=== PATIENT | female | born 1950 | race African-American/Black ===

== ENCOUNTER 2019-12-19 11:02 | Emergency (ER) | payer MEDICARE, MEDICAID ==
[~2019-12-19] VITALS: Ht 157.5 cm; Wt 150.0 kg
[~2019-12-19 11:02] MED LIST: AMLO10TA80 PO; ASPI-1497 PO; ATOR-2 PO; BENA40TA9 PO; CARV25TA47 PO; CHOL100044 PO; FUROSEMIDE PO; HUMALOG; HYDR-4134 PO; LANTUS
[2019-12-19 11:39] LABS: BASOPHILS % 1.4 % (0.0-2.0); EOSINOPHILS % 6.1 % (0.0-5.0); HEMATOCRIT. 36.2 % (36.0-48.0); HEMOGLOBIN. 11.7 g/dL (12.0-16.0); LYMPHOCYTES % 21.9 % (20.0-50.0); MEAN CORPUSCULAR HEMOGLOBIN 28.3 pg (28.0-32.0); MEAN CORPUSCULAR VOLUME 87.3 fL (81.0-99.0); MEAN PLATELET VOLUME 8.9 fl (7.4-10.4); MONOCYTES % 5.8 % (2.0-8.0); NEUTROPHILS % 64.8 % (40.0-76.0); PLATELET 166 x1000/uL (130-400); RED BLOOD CELL COUNT 4.15 mill/uL (4.2-5.4); RED CELL DISTRIBUTION WIDTH 17.2 % (11.6-14.6)
[2019-12-19 11:49] LABS: CHLORIDE 112 mEq/L (98-107)
[2019-12-19 11:52] LABS: ETHANOL BLOOD < 10 mg/dL
[2019-12-19 13:06] LABS: CLARITY URINE CLOUDY (CLEAR); COLOR URINE YELLOW (YELLOW); KETONES URINE NEGATIVE (NEGATIVE); LEUKOCYTE ESTERASE URINE 3+ (NEGATIVE); NITRITE URINE NEGATIVE (NEGATIVE); OCCULT BLOOD URINE NEGATIVE (NEGATIVE); PH URINE 5.5 (4.5-8.0); PROTEIN URINE NEGATIVE (NEGATIVE); SPECIFIC GRAVITY URINE 1.014 (1.005-1.030); UROBILINOGEN URINE 0.2 E.U./dL (0.2-1.0)
[2019-12-19 13:56] LABS: *BARBITURATES SCREEN URINE NEGATIVE (NEGATIVE); *BENZODIAZEPINES SCREEN URINE NEGATIVE (NEGATIVE); *COCAINE SCREEN URINE NEGATIVE (NEGATIVE); OPIATES URINE SCREEN NEGATIVE (NEGATIVE)
[2019-12-19 13:57] LABS: *AMPHETAMINES SCREEN URINE NEGATIVE (NEGATIVE); CANNABINOID URINE SCREEN NEGATIVE (NEGATIVE); PHENCYCLIDINE URINE SCREEN NEGATIVE (NEGATIVE)
[2019-12-19 14:00] LABS: METHADONE URINE SCREEN NEGATIVE (NEGATIVE)
[2019-12-19 15:30] VITALS: BP 150/65
== END 2019-12-19 16:19 | disposition home or self-care (01) ==
LOC: ER 11:02
DX: E11.649 Type 2 diabetes mellitus with hypoglycemia without coma (principal); N39.0 Urinary tract infection, site not specified; I11.0 Hypertensive heart disease with heart failure; I50.9 Heart failure, unspecified; Z79.899 Other long term (current) drug therapy; Z98.890 Other specified postprocedural states
CPT/HCPCS: 36415; 80053; 80305; 80320; 81003; 82962; 85025; 93005; 99284; G0480

== ENCOUNTER 2020-03-24 22:22 | Emergency (ER) | payer MEDICARE, MEDICAID ==
[~2020-03-24] VITALS: Ht 157.5 cm; Wt 137.0 kg
[2020-03-24] MEDS ORDERED: ONDANSETRON HCL 4MG/2ML INJ IV STA (22:50)
[2020-03-24] MEDS ORDERED: SODIUM CHLORIDE 0.9% 1,000 ML IV ONE (23:00)
[2020-03-24 23:45] LABS: BASOPHILS % 0.5 % (0.0-2.0); CHLORIDE 110 mEq/L (98-107); EOSINOPHILS % 3.4 % (0.0-5.0); HEMATOCRIT. 37.1 % (36.0-48.0); HEMOGLOBIN. 12.2 g/dL (12.0-16.0); LYMPHOCYTES % 34.2 % (20.0-50.0); MEAN CORPUSCULAR HEMOGLOBIN 29.2 pg (28.0-32.0); MEAN PLATELET VOLUME 10.7 fl (7.4-10.4); MONOCYTES % 6.9 % (2.0-8.0); PLATELET 186 x1000/uL (130-400); RED BLOOD CELL COUNT 4.17 mill/uL (4.2-5.4)
[2020-03-24 23:48] LABS: PROTHROMBIN TIME 10.5 sec (9.6-11.0)
[2020-03-25] MEDS ORDERED: MORPHINE SULFATE 2 MG/ML CPJ (NOT FOR IM USE) IV ONE (01:45)
[2020-03-25] MEDS ORDERED: KETOROLAC 15MG/ML VIAL IV ONE (01:45)
[2020-03-25 02:15] VITALS: BP 160/83
== END 2020-03-25 02:15 | disposition home or self-care (01) ==
LOC: ER 22:22
DX: R10.13 Epigastric pain (principal); R11.10 Vomiting, unspecified; E11.9 Type 2 diabetes mellitus without complications; I11.0 Hypertensive heart disease with heart failure; I50.9 Heart failure, unspecified; Z86.73 Personal history of transient ischemic attack (TIA), and cerebral infarction without residual deficits
CPT/HCPCS: 36415; 74176; 80053; 83690; 83880; 84484; 85025; 85610; 93005; 96374; 99285; J2405; J7030

== ENCOUNTER 2020-11-12 03:06 | Inpatient (IN) | payer BC, MEDICAID ==
[~2020-11-12] VITALS: Ht 165.1 cm; Wt 119.7 kg
[2020-11-12] MEDS ORDERED: ACETAMINOPHEN 325MG TABLET PO STA (03:44)
[2020-11-12] MEDS ORDERED: PIPERACILLIN/TAZ 3.375G PREMIX 50 ML IV ONE (03:45)
[2020-11-12] MEDS ORDERED: VANCOMYCIN 1 G PREMIX 200 ML IV ONE (03:45)
[2020-11-12] MEDS ORDERED: SODIUM CHLORIDE 0.9% 1,000 ML IV ONE (03:45)
[2020-11-12 04:16] LABS: BASOPHILS % 0.7 % (0.0-2.0); EOSINOPHILS % 0.1 % (0.0-5.0); HEMATOCRIT. 34.9 % (36.0-48.0); HEMOGLOBIN. 11.5 g/dL (12.0-16.0); LYMPHOCYTES % 20.5 % (20.0-50.0); MEAN CORPUSCULAR HEMOGLOBIN 28.2 pg (28.0-32.0); MEAN CORPUSCULAR VOLUME 86.1 fL (81.0-99.0); MEAN PLATELET VOLUME 10.3 fl (7.4-10.4); NEUTROPHILS % 72.7 % (40.0-76.0); PLATELET 141 x1000/uL (130-400); RED BLOOD CELL COUNT 4.06 mill/uL (4.2-5.4); RED CELL DISTRIBUTION WIDTH 15.7 % (11.6-14.6)
[2020-11-12 04:23] LABS: CHLORIDE 110 mEq/L (98-107)
[2020-11-12 04:31] LABS: PROTHROMBIN TIME 11.1 sec (9.6-11.0)
[2020-11-12 04:32] LABS: CREATINE KINASE 306 IU/L (26-192)
[2020-11-12 05:09] LABS: CLARITY URINE TURBID (CLEAR); COLOR URINE YELLOW (YELLOW); KETONES URINE TRACE (NEGATIVE); LEUKOCYTE ESTERASE URINE NEGATIVE (NEGATIVE); NITRITE URINE NEGATIVE (NEGATIVE); OCCULT BLOOD URINE NEGATIVE (NEGATIVE); PROTEIN URINE 3+ (NEGATIVE); SPECIFIC GRAVITY URINE 1.017 (1.005-1.030); UROBILINOGEN URINE 0.2 E.U./dL (0.2-1.0)
[2020-11-12] MEDS ORDERED: ASPIRIN 325MG EC TABLET PO SCH (05:15)
[2020-11-12] MEDS ORDERED: CEFTRIAXONE 1 G PREMIX 50 ML IV SCH (10:00)
[2020-11-12] MEDS: ONDANSETRON HCL 4MG/2ML INJ IV PRN (10:16)
[2020-11-12] MEDS: PANTOPRAZOLE SODIUM 40 MG/VIAL IV SCH ×2 (10:16→20:51)
[2020-11-12] MEDS: AZITHROMYCIN 250 MG TABLET PO SCH (10:19)
[2020-11-12 13:32] LABS: BASOPHILS % 0.6 % (0.0-2.0); HEMATOCRIT. 31.7 % (36.0-48.0); HEMOGLOBIN. 10.7 g/dL (12.0-16.0); LYMPHOCYTES % 21.2 % (20.0-50.0); MEAN CORPUSCULAR HEMOGLOBIN 29.5 pg (28.0-32.0); MEAN CORPUSCULAR VOLUME 87.7 fL (81.0-99.0); MEAN PLATELET VOLUME 10.9 fl (7.4-10.4); MONOCYTES % 6.2 % (2.0-8.0); PLATELET 117 x1000/uL (130-400); RED BLOOD CELL COUNT 3.62 mill/uL (4.2-5.4); RED CELL DISTRIBUTION WIDTH 16.4 % (11.6-14.6)
[2020-11-12 13:52] LABS: FERRITIN 172 ng/mL (10-291)
[2020-11-12 14:03] LABS: HEPATITIS B SURFACE ANTIGEN NEGATIVE
[2020-11-12 14:04] LABS: FOLIC ACID (FOLATE) SERUM >20 ng/mL ng/mL (>5.38)
[2020-11-12 14:16] LABS: VITAMIN B12 SERUM 981 pg/mL (211-911)
[2020-11-12] MEDS ORDERED: DEXTROSE 50% WATER 50ML SYRINGE IV PRN (14:30)
[2020-11-12 14:32] LABS: HEPATITIS A AB IGM NEGATIVE (NEGATIVE)
[2020-11-12] MEDS: SODIUM CHLORIDE 0.45% 1,000 ML IV SCH (15:00)
[2020-11-12 16:00] VITALS: BP 110/40
[2020-11-12 17:24] VITALS: BP 140/75
[2020-11-12] MEDS: BLOOD SUGAR DIAGNOSTIC STRIP TEST SCH ×2 (17:40→20:58)
[2020-11-12] MEDS: INSULIN LISPRO 100 UNITS/ML SUBCUT SCH ×2 (19:11→20:58)
[2020-11-12 20:00] VITALS: BP 137/53
[2020-11-12] MEDS: ACETAMINOPHEN 325MG TABLET PO PRN (23:24)
[2020-11-13] VITALS (7 sets, daily range): BP systolic 120–154; BP diastolic 9–72
[2020-11-13] MEDS: ACETAMINOPHEN 325MG TABLET PO PRN ×4 (05:50→22:04)
[2020-11-13] MEDS: BLOOD SUGAR DIAGNOSTIC STRIP TEST SCH ×4 (06:56→20:30)
[2020-11-13 07:28] LABS: BASOPHILS % 0.4 % (0.0-2.0); EOSINOPHILS % 0.1 % (0.0-5.0); HEMATOCRIT. 30.8 % (36.0-48.0); HEMOGLOBIN. 10.4 g/dL (12.0-16.0); LYMPHOCYTES % 12.9 % (20.0-50.0); MEAN CORPUSCULAR VOLUME 85.7 fL (81.0-99.0); MEAN PLATELET VOLUME 9.9 fl (7.4-10.4); MONOCYTES % 6.1 % (2.0-8.0); NEUTROPHILS % 80.5 % (40.0-76.0); PLATELET 117 x1000/uL (130-400); RED CELL DISTRIBUTION WIDTH 16.2 % (11.6-14.6)
[2020-11-13] MEDS: AZITHROMYCIN 250 MG TABLET PO SCH (08:40)
[2020-11-13] MEDS: PANTOPRAZOLE SODIUM 40 MG/VIAL IV SCH ×2 (08:40→20:41)
[2020-11-13] MEDS: INSULIN LISPRO 100 UNITS/ML SUBCUT SCH ×4 (08:41→20:55)
[2020-11-13] MEDS: CEFTRIAXONE 1,000 MG in DEXTROSE 5% WATER 50 ML IV SCH (11:38)
[2020-11-13] MEDS: ONDANSETRON HCL 4MG/2ML INJ IV PRN (18:01)
[2020-11-13] MEDS: FERROUS SULFATE 325MG TABLET PO SCH (18:01)
[2020-11-13] MEDS: SODIUM CHLORIDE 0.45% 1,000 ML IV SCH (18:02)
[2020-11-13] MEDS ORDERED: DILTIAZEM HCL 5MG/ML 5ML VIAL IV NR (18:45)
[2020-11-13] MEDS: ENOXAPARIN 150MG/ML SYR SUBCUT SCH (20:41)
[2020-11-13] MEDS: DILTIAZEM HCL 60MG TABLET PO SCH (23:52)
[2020-11-14] VITALS: BP 126/62
[2020-11-14] MEDS: ACETAMINOPHEN 325MG TABLET PO PRN ×4 (02:04→20:36)
[2020-11-14 04:00] VITALS: BP 135/70
[2020-11-14] MEDS: DILTIAZEM HCL 60MG TABLET PO SCH ×3 (06:04→17:50)
[2020-11-14] MEDS: SODIUM CHLORIDE 0.45% 1,000 ML IV SCH (06:05)
[2020-11-14 06:17] LABS: BASOPHILS % 0.4 % (0.0-2.0); EOSINOPHILS % 0.1 % (0.0-5.0); HEMATOCRIT. 32.6 % (36.0-48.0); HEMOGLOBIN. 10.8 g/dL (12.0-16.0); LYMPHOCYTES % 20.8 % (20.0-50.0); MEAN CORPUSCULAR HEMOGLOBIN 28.9 pg (28.0-32.0); MEAN PLATELET VOLUME 9.7 fl (7.4-10.4); MONOCYTES % 5.3 % (2.0-8.0); NEUTROPHILS % 73.4 % (40.0-76.0); PLATELET 122 x1000/uL (130-400); RED BLOOD CELL COUNT 3.74 mill/uL (4.2-5.4); RED CELL DISTRIBUTION WIDTH 15.9 % (11.6-14.6)
[2020-11-14] MEDS: BLOOD SUGAR DIAGNOSTIC STRIP TEST SCH ×4 (06:46→21:08)
[2020-11-14 07:07] LABS: CHLORIDE 110 mEq/L (98-107)
[2020-11-14 07:17] LABS: PHOSPHORUS 4.3 mg/dL (2.5-4.9)
[2020-11-14 08:00] VITALS: BP 149/64
[2020-11-14] MEDS: FERROUS SULFATE 325MG TABLET PO SCH ×3 (08:49→17:50)
[2020-11-14] MEDS: AZITHROMYCIN 250 MG TABLET PO SCH (08:49)
[2020-11-14] MEDS: CEFTRIAXONE 1,000 MG in DEXTROSE 5% WATER 50 ML IV SCH (08:49)
[2020-11-14] MEDS: ONDANSETRON HCL 4MG/2ML INJ IV PRN (08:49)
[2020-11-14] MEDS: PANTOPRAZOLE SODIUM 40 MG/VIAL IV SCH ×2 (08:49→20:35)
[2020-11-14] MEDS: ASCORBIC ACID 500 MG TABLET PO SCH (08:49)
[2020-11-14] MEDS: INSULIN LISPRO 100 UNITS/ML SUBCUT SCH ×4 (08:50→20:37)
[2020-11-14 11:40] VITALS: BP 152/65
[2020-11-14 16:21] VITALS: BP 136/64
[2020-11-14] MEDS: NYSTATIN POWDER 15GM TOP SCH (17:52)
[2020-11-14] MEDS: DEXAMETHASONE 4MG/ML 1ML VIAL IV SCH (19:12)
[2020-11-14 20:00] VITALS: BP 148/69
[2020-11-14] MEDS: ENOXAPARIN 150MG/ML SYR SUBCUT SCH (20:36)
[2020-11-14] MEDS: GUAIFENESIN 600MG ER TABLET PO SCH (20:38)
[2020-11-15] VITALS: BP 168/66
[2020-11-15] MEDS: DILTIAZEM HCL 5MG/ML 5ML VIAL IV PRN (00:46)
[2020-11-15] MEDS: DILTIAZEM HCL 60MG TABLET PO SCH ×4 (01:51→11:37)
[2020-11-15] MEDS: SODIUM CHLORIDE 0.45% 1,000 ML IV SCH ×2 (02:30→11:37)
[2020-11-15 04:00] VITALS: BP 146/80
[2020-11-15 07:17] LABS: BASOPHILS % 0.4 % (0.0-2.0); HEMATOCRIT. 32.2 % (36.0-48.0); HEMOGLOBIN. 10.5 g/dL (12.0-16.0); LYMPHOCYTES % 13.5 % (20.0-50.0); MEAN CORPUSCULAR HEMOGLOBIN 28.3 pg (28.0-32.0); MEAN CORPUSCULAR VOLUME 86.6 fL (81.0-99.0); MEAN PLATELET VOLUME 11.1 fl (7.4-10.4); MONOCYTES % 2.8 % (2.0-8.0); NEUTROPHILS % 83.3 % (40.0-76.0); PLATELET 142 x1000/uL (130-400); RED BLOOD CELL COUNT 3.72 mill/uL (4.2-5.4); RED CELL DISTRIBUTION WIDTH 16.2 % (11.6-14.6)
[2020-11-15 07:20] LABS: CHLORIDE 106 mEq/L (98-107)
[2020-11-15] MEDS: FERROUS SULFATE 325MG TABLET PO SCH ×3 (07:37→17:35)
[2020-11-15] MEDS: INSULIN LISPRO 100 UNITS/ML SUBCUT SCH ×4 (07:38→20:52)
[2020-11-15] MEDS: BLOOD SUGAR DIAGNOSTIC STRIP TEST SCH ×4 (07:53→20:53)
[2020-11-15 08:00] VITALS: BP 158/58
[2020-11-15] MEDS: PANTOPRAZOLE SODIUM 40 MG/VIAL IV SCH ×2 (08:13→20:29)
[2020-11-15] MEDS: NYSTATIN POWDER 15GM TOP SCH ×2 (08:13→17:36)
[2020-11-15] MEDS: CEFTRIAXONE 1,000 MG in DEXTROSE 5% WATER 50 ML IV SCH (08:13)
[2020-11-15] MEDS: ASCORBIC ACID 500 MG TABLET PO SCH (08:13)
[2020-11-15] MEDS: GUAIFENESIN 600MG ER TABLET PO SCH ×2 (08:13→20:31)
[2020-11-15] MEDS: AZITHROMYCIN 250 MG TABLET PO SCH (08:13)
[2020-11-15] MEDS: DEXAMETHASONE 4MG/ML 1ML VIAL IV SCH (08:15)
[2020-11-15 11:54] VITALS: BP 154/56
[2020-11-15 16:00] VITALS: BP 138/56
[2020-11-15 20:00] VITALS: BP 119/59
[2020-11-15] MEDS: DILTIAZEM HCL 90MG TABLET PO SCH (20:30)
[2020-11-15] MEDS: HYDRALAZINE HCL 25MG TABLET PO SCH (20:31)
[2020-11-15] MEDS: ENOXAPARIN 150MG/ML SYR SUBCUT SCH (20:32)
[2020-11-15] MEDS: INSULIN GLARGINE UD 100 UNITS/ML SYR SUBCUT SCH (22:10)
[2020-11-16] VITALS: BP 146/60
[2020-11-16 04:00] VITALS: BP_SYST 148; BP_DIAS 52; BP_DIAS 68
[2020-11-16] MEDS ORDERED: LIDOCAINE HCL/PF 1% 2ML VIAL ONE (05:00)
[2020-11-16] MEDS: BLOOD SUGAR DIAGNOSTIC STRIP TEST SCH ×4 (06:01→21:17)
[2020-11-16] MEDS: DILTIAZEM HCL 90MG TABLET PO SCH ×3 (06:02→21:16)
[2020-11-16 06:36] LABS: HEMATOCRIT. 31.6 % (36.0-48.0); HEMOGLOBIN. 10.4 g/dL (12.0-16.0); MEAN CORPUSCULAR HEMOGLOBIN 28.2 pg (28.0-32.0); MEAN CORPUSCULAR VOLUME 86.1 fL (81.0-99.0); MEAN PLATELET VOLUME 10.3 fl (7.4-10.4); PLATELET 148 x1000/uL (130-400); RED BLOOD CELL COUNT 3.67 mill/uL (4.2-5.4); RED CELL DISTRIBUTION WIDTH 15.9 % (11.6-14.6)
[2020-11-16 07:09] LABS: PHOSPHORUS 4.1 mg/dL (2.5-4.9)
[2020-11-16 07:45] LABS: BG CARBOXYHEMOGLOBIN 0.3 % (0.5-1.5); BG DEOXYHEMOGLOBIN 7.7 % (0.0-5.0); BG FRACTION INSPIRED OXYGEN 40; BG HCO3 ACT 18.7 mmol/L (22.0-26.0); BG METHEMOGLOBIN 0.1 % (0.0-1.5); BG OXYGEN SATURATION 92.3 % (92.0-98.5); BG OXYHEMOGLOBIN 91.9 % (94.0-97.0); BG PCO2 34.2 mmHg (35.0-45.0); BG PH 7.356 (7.350-7.450); BG SAMPLE SITE RIGHT RADIAL; BG TOTAL HEMOGLOBIN 11.1 g/dL (12.0-18.0); BG VENT MODE NASAL CANNULA
[2020-11-16 08:00] VITALS: BP 129/55
[2020-11-16] MEDS: FERROUS SULFATE 325MG TABLET PO SCH ×3 (08:00→18:05)
[2020-11-16] MEDS: CEFTRIAXONE 1,000 MG in DEXTROSE 5% WATER 50 ML IV SCH (08:30)
[2020-11-16] MEDS: DEXAMETHASONE 4MG/ML 1ML VIAL IV SCH (08:32)
[2020-11-16] MEDS: PANTOPRAZOLE SODIUM 40 MG/VIAL IV SCH ×2 (08:32→21:17)
[2020-11-16] MEDS: ASCORBIC ACID 500 MG TABLET PO SCH (08:32)
[2020-11-16] MEDS: HYDRALAZINE HCL 25MG TABLET PO SCH ×2 (08:33→21:17)
[2020-11-16] MEDS: NYSTATIN POWDER 15GM TOP SCH ×2 (08:56→17:49)
[2020-11-16] MEDS: INSULIN LISPRO 100 UNITS/ML SUBCUT SCH ×4 (08:58→21:19)
[2020-11-16] MEDS: AZITHROMYCIN 250 MG TABLET PO SCH (09:01)
[2020-11-16] MEDS: GUAIFENESIN 600MG ER TABLET PO SCH ×2 (09:01→21:16)
[2020-11-16] MEDS: INSULIN GLARGINE UD 100 UNITS/ML SYR SUBCUT SCH ×2 (10:04→21:47)
[2020-11-16 12:00] VITALS: BP 133/45
[2020-11-16 12:23] LABS: PLATELET ESTIMATE NORMAL
[2020-11-16 13:10] LABS: *CREATININE RANDOM URINE 190.5 mg/dL (Not Estab.); MICROALBUMIN RANDOM URINE 2037.2 ug/mL (Not Estab.)
[2020-11-16 16:00] VITALS: BP 124/50
[2020-11-16] MEDS: ENOXAPARIN 150MG/ML SYR SUBCUT SCH (18:07)
[2020-11-16 20:00] VITALS: BP 147/58
[2020-11-17] VITALS: BP 118/44
[2020-11-17 04:00] VITALS: BP 135/50
[2020-11-17 05:09] LABS: HEMOGLOBIN. 10.4 g/dL (12.0-16.0); MEAN CORPUSCULAR HEMOGLOBIN 27.6 pg (28.0-32.0); MEAN CORPUSCULAR VOLUME 85.1 fL (81.0-99.0); MEAN PLATELET VOLUME 9.9 fl (7.4-10.4); PLATELET 165 x1000/uL (130-400); RED BLOOD CELL COUNT 3.77 mill/uL (4.2-5.4)
[2020-11-17] MEDS: BLOOD SUGAR DIAGNOSTIC STRIP TEST SCH ×4 (05:59→21:00)
[2020-11-17] MEDS: DILTIAZEM HCL 90MG TABLET PO SCH ×3 (05:59→22:10)
[2020-11-17 07:50] VITALS: BP 126/48
[2020-11-17] MEDS: GUAIFENESIN 600MG ER TABLET PO SCH ×2 (08:17→22:10)
[2020-11-17] MEDS: ASCORBIC ACID 500 MG TABLET PO SCH (08:17)
[2020-11-17] MEDS: HYDRALAZINE HCL 25MG TABLET PO SCH ×2 (08:17→22:09)
[2020-11-17] MEDS: FERROUS SULFATE 325MG TABLET PO SCH ×3 (08:17→17:24)
[2020-11-17] MEDS: NYSTATIN POWDER 15GM TOP SCH ×2 (08:18→17:24)
[2020-11-17] MEDS: DEXAMETHASONE 4MG/ML 1ML VIAL IV SCH (08:18)
[2020-11-17] MEDS: PANTOPRAZOLE SODIUM 40 MG/VIAL IV SCH ×2 (08:18→22:09)
[2020-11-17] MEDS: INSULIN LISPRO 100 UNITS/ML SUBCUT SCH ×4 (08:19→22:11)
[2020-11-17] MEDS: INSULIN GLARGINE UD 100 UNITS/ML SYR SUBCUT SCH ×2 (10:17→22:24)
[2020-11-17 10:43] LABS: BG BASE EXCESS -6.3 mmol/L (-2.0-2.0); BG CARBOXYHEMOGLOBIN 0.3 % (0.5-1.5); BG FRACTION INSPIRED OXYGEN 48; BG HCO3 ACT 17.8 mmol/L (22.0-26.0); BG METHEMOGLOBIN 0.3 % (0.0-1.5); BG OXYGEN SATURATION 82.9 % (92.0-98.5); BG OXYHEMOGLOBIN 82.4 % (94.0-97.0); BG PCO2 30.6 mmHg (35.0-45.0); BG PH 7.382 (7.350-7.450); BG PO2 45.9 mmHg (75.0-100.0); BG SAMPLE SITE LEFT RADIAL; BG TOTAL HEMOGLOBIN 11.5 g/dL (12.0-18.0); BG VENT MODE NASAL CANNULA
[2020-11-17 12:00] VITALS: BP 134/48
[2020-11-17] MEDS: MEGESTROL ACETATE 400 MG/10 ML UDC PO SCH (12:43)
[2020-11-17 16:00] VITALS: BP 158/89
[2020-11-17] MEDS ORDERED: IVERMECTIN 3 MG TABLET PO NR (18:15)
[2020-11-17 19:17] LABS: PLATELET ESTIMATE NORMAL
[2020-11-17 20:00] VITALS: BP 155/74
[2020-11-18] VITALS (7 sets, daily range): BP systolic 115–140; BP diastolic 54–75
[2020-11-18 06:06] LABS: CHLORIDE 109 mEq/L (98-107)
[2020-11-18 06:13] LABS: PHOSPHORUS 3.5 mg/dL (2.5-4.9)
[2020-11-18] MEDS: DILTIAZEM HCL 90MG TABLET PO SCH ×3 (06:30→20:56)
[2020-11-18 06:32] LABS: HEMATOCRIT. 33.5 % (36.0-48.0); HEMOGLOBIN. 11.1 g/dL (12.0-16.0); MEAN CORPUSCULAR HEMOGLOBIN 28.1 pg (28.0-32.0); MEAN PLATELET VOLUME 10.3 fl (7.4-10.4); PLATELET 211 x1000/uL (130-400); RED BLOOD CELL COUNT 3.95 mill/uL (4.2-5.4); RED CELL DISTRIBUTION WIDTH 15.7 % (11.6-14.6)
[2020-11-18] MEDS: BLOOD SUGAR DIAGNOSTIC STRIP TEST SCH ×4 (07:40→21:03)
[2020-11-18] MEDS: GUAIFENESIN 600MG ER TABLET PO SCH ×2 (08:42→20:55)
[2020-11-18] MEDS: ASCORBIC ACID 500 MG TABLET PO SCH (08:42)
[2020-11-18] MEDS: FOLIC ACID/VITAMIN B COMP W-C TABLET PO SCH (08:42)
[2020-11-18] MEDS: DEXAMETHASONE 4MG/ML 1ML VIAL IV SCH (08:43)
[2020-11-18] MEDS: PANTOPRAZOLE SODIUM 40 MG/VIAL IV SCH ×2 (08:43→20:54)
[2020-11-18] MEDS: INSULIN LISPRO 100 UNITS/ML SUBCUT SCH ×4 (08:50→21:00)
[2020-11-18] MEDS: NYSTATIN POWDER 15GM TOP SCH ×2 (08:57→17:04)
[2020-11-18] MEDS ORDERED: LIDOCAINE HCL 1% 20ML VIAL (Pyxis) INJ ONE (08:57)
[2020-11-18] MEDS: MEGESTROL ACETATE 400 MG/10 ML UDC PO SCH (08:57)
[2020-11-18] MEDS: HYDRALAZINE HCL 25MG TABLET PO SCH ×2 (08:58→20:57)
[2020-11-18] MEDS: INSULIN GLARGINE UD 100 UNITS/ML SYR SUBCUT SCH ×2 (10:39→22:22)
[2020-11-18 10:43] LABS: PLATELET ESTIMATE NORMAL
[2020-11-18] MEDS: ACETAMINOPHEN 325MG TABLET PO PRN (20:54)
[2020-11-18] MEDS: ENOXAPARIN 150MG/ML SYR SUBCUT SCH (20:59)
[2020-11-19] VITALS (7 sets, daily range): BP systolic 135–180; BP diastolic 43–97
[2020-11-19 06:19] LABS: HEMATOCRIT. 35.7 % (36.0-48.0); HEMOGLOBIN. 11.7 g/dL (12.0-16.0); MEAN CORPUSCULAR HEMOGLOBIN 27.7 pg (28.0-32.0); MEAN CORPUSCULAR VOLUME 84.6 fL (81.0-99.0); MEAN PLATELET VOLUME 10.1 fl (7.4-10.4); PLATELET 203 x1000/uL (130-400); RED BLOOD CELL COUNT 4.21 mill/uL (4.2-5.4); RED CELL DISTRIBUTION WIDTH 16.1 % (11.6-14.6)
[2020-11-19] MEDS: DILTIAZEM HCL 90MG TABLET PO SCH ×3 (06:32→20:48)
[2020-11-19] MEDS: BLOOD SUGAR DIAGNOSTIC STRIP TEST SCH ×4 (07:40→20:48)
[2020-11-19] MEDS: MEGESTROL ACETATE 400 MG/10 ML UDC PO SCH ×2 (09:00→09:08)
[2020-11-19] MEDS: INSULIN LISPRO 100 UNITS/ML SUBCUT SCH ×4 (09:08→20:57)
[2020-11-19] MEDS: FOLIC ACID/VITAMIN B COMP W-C TABLET PO SCH (09:08)
[2020-11-19] MEDS: GUAIFENESIN 600MG ER TABLET PO SCH ×2 (09:08→20:48)
[2020-11-19] MEDS: ASCORBIC ACID 500 MG TABLET PO SCH (09:09)
[2020-11-19] MEDS: FERROUS SULFATE 325MG TABLET PO SCH (09:09)
[2020-11-19] MEDS: NYSTATIN POWDER 15GM TOP SCH ×2 (09:10→17:40)
[2020-11-19] MEDS: HYDRALAZINE HCL 25MG TABLET PO SCH ×2 (09:10→20:48)
[2020-11-19] MEDS: PANTOPRAZOLE SODIUM 40 MG/VIAL IV SCH ×2 (09:10→20:47)
[2020-11-19] MEDS: DEXAMETHASONE 4MG/ML 1ML VIAL IV SCH (09:11)
[2020-11-19] MEDS: INSULIN GLARGINE UD 100 UNITS/ML SYR SUBCUT SCH ×2 (10:55→22:35)
[2020-11-19 14:12] LABS: PLATELET ESTIMATE NORMAL
[2020-11-19] MEDS ORDERED: IVERMECTIN 3 MG TABLET PO NR (18:15)
[2020-11-19] MEDS: ENOXAPARIN 150MG/ML SYR SUBCUT SCH (20:43)
[2020-11-20 04:00] VITALS: BP 141/54
[2020-11-20] MEDS: DILTIAZEM HCL 90MG TABLET PO SCH ×3 (05:45→21:21)
[2020-11-20] MEDS: BLOOD SUGAR DIAGNOSTIC STRIP TEST SCH ×4 (07:26→21:00)
[2020-11-20 08:00] VITALS: BP 126/73
[2020-11-20 08:21] LABS: HEMATOCRIT. 35.1 % (36.0-48.0); HEMOGLOBIN. 11.7 g/dL (12.0-16.0); MEAN CORPUSCULAR HEMOGLOBIN 28.2 pg (28.0-32.0); MEAN PLATELET VOLUME 10.9 fl (7.4-10.4); PLATELET 258 x1000/uL (130-400); RED BLOOD CELL COUNT 4.13 mill/uL (4.2-5.4)
[2020-11-20] MEDS: MEGESTROL ACETATE 400 MG/10 ML UDC PO SCH (09:00)
[2020-11-20] MEDS: NYSTATIN POWDER 15GM TOP SCH ×2 (09:09→17:04)
[2020-11-20] MEDS: INSULIN LISPRO 100 UNITS/ML SUBCUT SCH ×4 (09:10→21:00)
[2020-11-20] MEDS: FERROUS SULFATE 325MG TABLET PO SCH (09:11)
[2020-11-20] MEDS: GUAIFENESIN 600MG ER TABLET PO SCH ×2 (09:12→21:21)
[2020-11-20] MEDS: PANTOPRAZOLE SODIUM 40 MG/VIAL IV SCH ×2 (09:12→21:20)
[2020-11-20] MEDS: FOLIC ACID/VITAMIN B COMP W-C TABLET PO SCH (09:12)
[2020-11-20] MEDS: DEXAMETHASONE 10 MG/ML VIAL IV SCH (09:12)
[2020-11-20] MEDS: ASCORBIC ACID 500 MG TABLET PO SCH (09:12)
[2020-11-20] MEDS: HYDRALAZINE HCL 25MG TABLET PO SCH ×2 (09:36→21:21)
[2020-11-20] MEDS: INSULIN GLARGINE UD 100 UNITS/ML SYR SUBCUT SCH ×2 (10:48→22:00)
[2020-11-20 11:54] LABS: NUCLEATED RED BLOOD CELLS 1 /100 WBC; PLATELET ESTIMATE NORMAL
[2020-11-20 12:00] VITALS: BP 148/56
[2020-11-20 16:00] VITALS: BP 135/61
[2020-11-20 20:01] VITALS: BP 147/64
[2020-11-20] MEDS ORDERED: POTASSIUM CHLORIDE 20MEQ TABLET SR PO NR (20:52)
[2020-11-20] MEDS: ENOXAPARIN 150MG/ML SYR SUBCUT SCH (21:20)
[2020-11-21 00:05] VITALS: BP 141/69
[2020-11-21 04:00] VITALS: BP 143/63
[2020-11-21] MEDS: DILTIAZEM HCL 90MG TABLET PO SCH ×3 (05:32→21:29)
[2020-11-21] MEDS: BLOOD SUGAR DIAGNOSTIC STRIP TEST SCH ×4 (05:35→21:29)
[2020-11-21] MEDS: INSULIN LISPRO 100 UNITS/ML SUBCUT SCH ×4 (05:37→21:29)
[2020-11-21 05:44] LABS: PHOSPHORUS 3.9 mg/dL (2.5-4.9)
[2020-11-21 06:15] LABS: HEMATOCRIT. 35.4 % (36.0-48.0); HEMOGLOBIN. 11.7 g/dL (12.0-16.0); MEAN CORPUSCULAR HEMOGLOBIN 28.3 pg (28.0-32.0); MEAN CORPUSCULAR VOLUME 85.4 fL (81.0-99.0); MEAN PLATELET VOLUME 10.9 fl (7.4-10.4); PLATELET 260 x1000/uL (130-400); RED BLOOD CELL COUNT 4.14 mill/uL (4.2-5.4)
[2020-11-21 08:00] VITALS: BP 146/72
[2020-11-21] MEDS: FOLIC ACID/VITAMIN B COMP W-C TABLET PO SCH (08:55)
[2020-11-21] MEDS: ASCORBIC ACID 500 MG TABLET PO SCH (08:55)
[2020-11-21] MEDS: DEXAMETHASONE 10 MG/ML VIAL IV SCH (08:55)
[2020-11-21] MEDS: PANTOPRAZOLE SODIUM 40 MG/VIAL IV SCH ×2 (08:55→21:27)
[2020-11-21] MEDS: HYDRALAZINE HCL 25MG TABLET PO SCH ×3 (08:56→21:29)
[2020-11-21] MEDS: MEGESTROL ACETATE 400 MG/10 ML UDC PO SCH (08:56)
[2020-11-21] MEDS: NYSTATIN POWDER 15GM TOP SCH ×2 (08:56→17:51)
[2020-11-21] MEDS: GUAIFENESIN 600MG ER TABLET PO SCH ×2 (08:56→21:29)
[2020-11-21] MEDS ORDERED: HEPARIN SODIUM 1,000 UNIT/1ML VIAL IV SCH (10:15)
[2020-11-21 12:00] VITALS: BP 131/71
[2020-11-21 13:44] LABS: BG BASE EXCESS 2.5 mmol/L (-2.0-2.0); BG DEOXYHEMOGLOBIN 9.1 % (0.0-5.0); BG FRACTION INSPIRED OXYGEN 100; BG HCO3 ACT 23.3 mmol/L (22.0-26.0); BG METHEMOGLOBIN 0.1 % (0.0-1.5); BG OXYGEN SATURATION 90.9 % (92.0-98.5); BG OXYHEMOGLOBIN 90.8 % (94.0-97.0); BG PCO2 25.4 mmHg (35.0-45.0); BG PO2 53.3 mmHg (75.0-100.0); BG SAMPLE SITE LEFT RADIAL; BG TOTAL HEMOGLOBIN 12.4 g/dL (12.0-18.0); BG VENT MODE HIGH FLOW
[2020-11-21] MEDS: RISPERIDONE 0.25MG TABLET PO SCH (14:40)
[2020-11-21] MEDS: CEFEPIME 1,000 MG in DEXTROSE 5% WATER 50 ML IV SCH (14:40)
[2020-11-21] MEDS: ACETAMINOPHEN 325MG TABLET PO PRN (14:41)
[2020-11-21] MEDS: INSULIN GLARGINE UD 100 UNITS/ML SYR SUBCUT SCH ×2 (14:51→21:28)
[2020-11-21 16:00] VITALS: BP 95/64
[2020-11-21 18:30] LABS: PLATELET ESTIMATE NORMAL
[2020-11-21 20:00] VITALS: BP 153/73
[2020-11-21] MEDS: ENOXAPARIN 150MG/ML SYR SUBCUT SCH (21:27)
[2020-11-22] VITALS: BP 158/70
[2020-11-22 04:00] VITALS: BP 151/70
[2020-11-22] MEDS: DILTIAZEM HCL 90MG TABLET PO SCH ×3 (06:27→21:22)
[2020-11-22 06:38] LABS: HEMATOCRIT. 35.2 % (36.0-48.0); HEMOGLOBIN. 11.5 g/dL (12.0-16.0); MEAN CORPUSCULAR HEMOGLOBIN 28.2 pg (28.0-32.0); MEAN CORPUSCULAR VOLUME 86.5 fL (81.0-99.0); MEAN PLATELET VOLUME 10.6 fl (7.4-10.4); PLATELET 226 x1000/uL (130-400); RED BLOOD CELL COUNT 4.07 mill/uL (4.2-5.4); RED CELL DISTRIBUTION WIDTH 16.3 % (11.6-14.6)
[2020-11-22 07:17] LABS: PHOSPHORUS 4.2 mg/dL (2.5-4.9)
[2020-11-22 08:00] VITALS: BP 126/59
[2020-11-22] MEDS: INSULIN LISPRO 100 UNITS/ML SUBCUT SCH ×4 (08:10→21:32)
[2020-11-22] MEDS: BLOOD SUGAR DIAGNOSTIC STRIP TEST SCH ×4 (08:10→21:32)
[2020-11-22] MEDS: HYDRALAZINE HCL 25MG TABLET PO SCH ×3 (09:00→21:00)
[2020-11-22] MEDS: PANTOPRAZOLE SODIUM 40 MG/VIAL IV SCH ×2 (09:29→21:00)
[2020-11-22] MEDS: RISPERIDONE 0.25MG TABLET PO SCH (09:30)
[2020-11-22] MEDS: GUAIFENESIN 600MG ER TABLET PO SCH ×2 (09:30→21:28)
[2020-11-22] MEDS: ASCORBIC ACID 500 MG TABLET PO SCH (09:30)
[2020-11-22] MEDS: DEXAMETHASONE 10 MG/ML VIAL IV SCH (09:30)
[2020-11-22] MEDS: FOLIC ACID/VITAMIN B COMP W-C TABLET PO SCH (09:30)
[2020-11-22] MEDS: NYSTATIN POWDER 15GM TOP SCH ×2 (09:31→17:23)
[2020-11-22] MEDS: INSULIN GLARGINE UD 100 UNITS/ML SYR SUBCUT SCH ×2 (09:31→21:32)
[2020-11-22] MEDS: MEGESTROL ACETATE 400 MG/10 ML UDC PO SCH (09:51)
[2020-11-22] MEDS: CEFEPIME 1,000 MG in DEXTROSE 5% WATER 50 ML IV SCH (11:32)
[2020-11-22 12:00] VITALS: BP 126/66
[2020-11-22 16:00] VITALS: BP 131/40
[2020-11-22] MEDS: ENOXAPARIN 120MG/0.8ML SYR SUBCUT SCH (17:22)
[2020-11-22 20:00] VITALS: BP 141/73
[2020-11-22] MEDS ORDERED: HEPARIN SODIUM 1,000 UNIT/1ML VIAL IV SCH (21:15)
[2020-11-22 22:20] LABS: PLATELET ESTIMATE NORMAL
[2020-11-23] VITALS (24 sets, daily range): BP systolic 128–163; BP diastolic 49–80
[2020-11-23] MEDS: DILTIAZEM HCL 90MG TABLET PO SCH ×5 (06:00→22:31)
[2020-11-23] MEDS: BLOOD SUGAR DIAGNOSTIC STRIP TEST SCH ×4 (07:22→21:00)
[2020-11-23] MEDS: INSULIN LISPRO 100 UNITS/ML SUBCUT SCH ×4 (08:10→21:00)
[2020-11-23] MEDS: GUAIFENESIN 600MG ER TABLET PO SCH ×2 (09:00→20:16)
[2020-11-23] MEDS: NYSTATIN POWDER 15GM TOP SCH ×2 (09:00→16:53)
[2020-11-23] MEDS: ASCORBIC ACID 500 MG TABLET PO SCH (09:00)
[2020-11-23] MEDS: PANTOPRAZOLE SODIUM 40 MG/VIAL IV SCH ×2 (09:00→20:16)
[2020-11-23] MEDS: RISPERIDONE 0.25MG TABLET PO SCH (09:00)
[2020-11-23] MEDS: HYDRALAZINE HCL 25MG TABLET PO SCH ×2 (09:00→20:16)
[2020-11-23] MEDS: MEGESTROL ACETATE 400 MG/10 ML UDC PO SCH (09:00)
[2020-11-23] MEDS: FOLIC ACID/VITAMIN B COMP W-C TABLET PO SCH (09:00)
[2020-11-23] MEDS: DEXAMETHASONE 10 MG/ML VIAL IV SCH (09:00)
[2020-11-23 09:40] LABS: HEMATOCRIT. 34.2 % (36.0-48.0); HEMOGLOBIN. 11.3 g/dL (12.0-16.0); MEAN CORPUSCULAR HEMOGLOBIN 28.6 pg (28.0-32.0); MEAN CORPUSCULAR VOLUME 86.4 fL (81.0-99.0); MEAN PLATELET VOLUME 11.3 fl (7.4-10.4); PLATELET 190 x1000/uL (130-400); RED BLOOD CELL COUNT 3.95 mill/uL (4.2-5.4); RED CELL DISTRIBUTION WIDTH 16.4 % (11.6-14.6)
[2020-11-23] MEDS: CEFEPIME 1,000 MG in DEXTROSE 5% WATER 50 ML IV SCH (11:14)
[2020-11-23] MEDS: INSULIN GLARGINE UD 100 UNITS/ML SYR SUBCUT SCH (11:26)
[2020-11-23 12:32] LABS: PLATELET ESTIMATE NORMAL
[2020-11-23] MEDS: ENOXAPARIN 120MG/0.8ML SYR SUBCUT SCH (15:05)
[2020-11-24] VITALS (24 sets, daily range): BP systolic 126–175; BP diastolic 52–119
[2020-11-24 06:03] LABS: HEMATOCRIT. 36.3 % (36.0-48.0); HEMOGLOBIN. 11.8 g/dL (12.0-16.0); MEAN CORPUSCULAR HEMOGLOBIN 28.1 pg (28.0-32.0); MEAN CORPUSCULAR VOLUME 86.2 fL (81.0-99.0); MEAN PLATELET VOLUME 11.4 fl (7.4-10.4); PLATELET 222 x1000/uL (130-400); RED BLOOD CELL COUNT 4.21 mill/uL (4.2-5.4); RED CELL DISTRIBUTION WIDTH 16.4 % (11.6-14.6)
[2020-11-24] MEDS: BLOOD SUGAR DIAGNOSTIC STRIP TEST SCH ×4 (06:30→21:19)
[2020-11-24] MEDS: DILTIAZEM HCL 90MG TABLET PO SCH ×3 (06:50→21:25)
[2020-11-24] MEDS: INSULIN LISPRO 100 UNITS/ML SUBCUT SCH ×4 (07:00→21:18)
[2020-11-24] MEDS: NYSTATIN POWDER 15GM TOP SCH ×2 (09:00→17:49)
[2020-11-24] MEDS: DEXAMETHASONE 10 MG/ML VIAL IV SCH (09:25)
[2020-11-24] MEDS: PANTOPRAZOLE SODIUM 40 MG/VIAL IV SCH ×2 (09:25→20:54)
[2020-11-24] MEDS: MEGESTROL ACETATE 400 MG/10 ML UDC PO SCH (09:25)
[2020-11-24] MEDS: GUAIFENESIN 600MG ER TABLET PO SCH ×2 (09:26→20:55)
[2020-11-24] MEDS: ENOXAPARIN 120MG/0.8ML SYR SUBCUT SCH (09:26)
[2020-11-24] MEDS: FOLIC ACID/VITAMIN B COMP W-C TABLET PO SCH (09:26)
[2020-11-24] MEDS: ASCORBIC ACID 500 MG TABLET PO SCH (09:26)
[2020-11-24] MEDS: HYDRALAZINE HCL 25MG TABLET PO SCH ×2 (09:28→21:00)
[2020-11-24 10:13] LABS: PLATELET ESTIMATE NORMAL
[2020-11-24] MEDS: CEFEPIME 1,000 MG in DEXTROSE 5% WATER 50 ML IV SCH (12:06)
[2020-11-24] MEDS: RISPERIDONE 0.25MG TABLET PO SCH (12:06)
[2020-11-24] MEDS: ACETAMINOPHEN 325MG TABLET PO PRN (13:40)
[2020-11-24] MEDS: MEGESTROL ACETATE 40MG TABLET PO SCH ×2 (14:32→17:54)
[2020-11-24] MEDS: DILTIAZEM HCL 5MG/ML 5ML VIAL IV PRN (14:33)
[2020-11-24] MEDS: MEROPENEM 1,000 MG in SODIUM CHLORIDE 0.9% 100 ML IV SCH (19:35)
[2020-11-24] MEDS ORDERED: VANCOMYCIN 2,000 MG in DEXT 5% WATER 500 ML IV NR (20:30)
[2020-11-25] VITALS (40 sets, daily range): BP systolic 104–174; BP diastolic 44–121
[2020-11-25] MEDS: MEGESTROL ACETATE 40MG TABLET PO SCH ×4 (00:49→13:15)
[2020-11-25] MEDS: GUAIFENESIN-DM 200MG-20MG/10ML UDC PO PRN (00:49)
[2020-11-25 02:50] LABS: BG BASE EXCESS -3.5 mmol/L (-2.0-2.0); BG CARBOXYHEMOGLOBIN 0.4 % (0.5-1.5); BG FRACTION INSPIRED OXYGEN 100; BG HCO3 ACT 19.9 mmol/L (22.0-26.0); BG METHEMOGLOBIN 0.2 % (0.0-1.5); BG OXYGEN SATURATION 73.8 % (92.0-98.5); BG OXYHEMOGLOBIN 73.4 % (94.0-97.0); BG PCO2 30.8 mmHg (35.0-45.0); BG PH 7.428 (7.350-7.450); BG PO2 40.4 mmHg (75.0-100.0); BG SAMPLE SITE RIGHT RADIAL; BG TOTAL HEMOGLOBIN 12.3 g/dL (12.0-18.0)
[2020-11-25 02:52] LABS: BG VENT MODE HIGH FLOW CANNULA
[2020-11-25 02:53] LABS: BG FLOW(L/min) 40 L/min
[2020-11-25] MEDS: DILTIAZEM HCL 90MG TABLET PO SCH ×4 (05:11→21:40)
[2020-11-25 05:37] LABS: HEMATOCRIT. 36.1 % (36.0-48.0); HEMOGLOBIN. 11.6 g/dL (12.0-16.0); MEAN CORPUSCULAR HEMOGLOBIN 27.9 pg (28.0-32.0); MEAN CORPUSCULAR VOLUME 87.1 fL (81.0-99.0); MEAN PLATELET VOLUME 11.6 fl (7.4-10.4); PLATELET 189 x1000/uL (130-400); RED BLOOD CELL COUNT 4.15 mill/uL (4.2-5.4); RED CELL DISTRIBUTION WIDTH 16.4 % (11.6-14.6)
[2020-11-25] MEDS: INSULIN LISPRO 100 UNITS/ML SUBCUT SCH ×4 (06:05→20:36)
[2020-11-25] MEDS: BLOOD SUGAR DIAGNOSTIC STRIP TEST SCH ×4 (06:06→20:10)
[2020-11-25] MEDS: GUAIFENESIN 600MG ER TABLET PO SCH ×2 (08:14→20:34)
[2020-11-25] MEDS: FOLIC ACID/VITAMIN B COMP W-C TABLET PO SCH (08:14)
[2020-11-25] MEDS: DEXAMETHASONE 10 MG/ML VIAL IV SCH (08:14)
[2020-11-25] MEDS: ENOXAPARIN 120MG/0.8ML SYR SUBCUT SCH (08:14)
[2020-11-25] MEDS: ASCORBIC ACID 500 MG TABLET PO SCH (08:14)
[2020-11-25] MEDS: RISPERIDONE 0.25MG TABLET PO SCH (08:14)
[2020-11-25] MEDS: HYDRALAZINE HCL 25MG TABLET PO SCH ×2 (08:15→20:35)
[2020-11-25] MEDS: PANTOPRAZOLE SODIUM 40 MG/VIAL IV SCH ×2 (08:15→20:34)
[2020-11-25 08:55] LABS: PLATELET ESTIMATE NORMAL
[2020-11-25] MEDS: INSULIN GLARGINE UD 100 UNITS/ML SYR SUBCUT SCH ×2 (10:58→21:41)
[2020-11-25] MEDS: NYSTATIN POWDER 15GM TOP SCH ×2 (10:58→17:54)
[2020-11-25] MEDS: MEROPENEM 1,000 MG in SODIUM CHLORIDE 0.9% 100 ML IV SCH (20:10)
[2020-11-26] VITALS (52 sets, daily range): BP systolic 69–206; BP diastolic 32–117
[2020-11-26 05:19] LABS: HEMOGLOBIN. 11.2 g/dL (12.0-16.0); MEAN CORPUSCULAR HEMOGLOBIN 27.6 pg (28.0-32.0); MEAN PLATELET VOLUME 11.4 fl (7.4-10.4); PLATELET 174 x1000/uL (130-400); RED BLOOD CELL COUNT 4.07 mill/uL (4.2-5.4); RED CELL DISTRIBUTION WIDTH 16.4 % (11.6-14.6)
[2020-11-26] MEDS: INSULIN LISPRO 100 UNITS/ML SUBCUT SCH ×4 (05:58→20:52)
[2020-11-26] MEDS: DILTIAZEM HCL 90MG TABLET PO SCH ×3 (05:59→22:52)
[2020-11-26] MEDS: BLOOD SUGAR DIAGNOSTIC STRIP TEST SCH ×4 (05:59→20:51)
[2020-11-26] MEDS: HYDRALAZINE HCL 25MG TABLET PO SCH ×2 (08:24→20:50)
[2020-11-26] MEDS: FOLIC ACID/VITAMIN B COMP W-C TABLET PO SCH (08:28)
[2020-11-26] MEDS: ASCORBIC ACID 500 MG TABLET PO SCH (08:28)
[2020-11-26] MEDS: RISPERIDONE 0.25MG TABLET PO SCH (08:28)
[2020-11-26] MEDS: GUAIFENESIN 600MG ER TABLET PO SCH ×2 (08:28→20:50)
[2020-11-26] MEDS: ENOXAPARIN 120MG/0.8ML SYR SUBCUT SCH (08:28)
[2020-11-26] MEDS: PANTOPRAZOLE SODIUM 40 MG/VIAL IV SCH ×2 (08:29→20:50)
[2020-11-26] MEDS: DEXAMETHASONE 10 MG/ML VIAL IV SCH (08:29)
[2020-11-26] MEDS: NYSTATIN POWDER 15GM TOP SCH ×2 (08:40→18:03)
[2020-11-26 09:27] LABS: PLATELET ESTIMATE NORMAL
[2020-11-26] MEDS: INSULIN GLARGINE UD 100 UNITS/ML SYR SUBCUT SCH ×2 (11:07→22:53)
[2020-11-26] MEDS: DILTIAZEM HCL 5MG/ML 5ML VIAL IV PRN ×3 (15:42→20:51)
[2020-11-26] MEDS ORDERED: DIPHENOXYLATE/ATROPINE 2.5/0.025MG TABLET PO PRN (17:00)
[2020-11-26] MEDS: LOPERAMIDE HCL 2MG CAPSULE PO PRN (19:40)
[2020-11-26] MEDS: MEROPENEM 1,000 MG in SODIUM CHLORIDE 0.9% 100 ML IV SCH (19:40)
[2020-11-26] MEDS ORDERED: CLONIDINE 0.1MG TABLET PO PRN (22:45)
[2020-11-26] MEDS: DRONABINOL 2.5MG CAPSULE PO SCH (22:53)
[2020-11-27] VITALS (42 sets, daily range): BP systolic 89–195; BP diastolic 53–108
[2020-11-27 04:51] LABS: HEMATOCRIT. 36.2 % (36.0-48.0); HEMOGLOBIN. 11.6 g/dL (12.0-16.0); MEAN CORPUSCULAR HEMOGLOBIN 27.6 pg (28.0-32.0); MEAN CORPUSCULAR VOLUME 85.6 fL (81.0-99.0); MEAN PLATELET VOLUME 11.1 fl (7.4-10.4); PLATELET 170 x1000/uL (130-400); RED BLOOD CELL COUNT 4.22 mill/uL (4.2-5.4); RED CELL DISTRIBUTION WIDTH 16.7 % (11.6-14.6)
[2020-11-27] MEDS: BLOOD SUGAR DIAGNOSTIC STRIP TEST SCH ×4 (05:38→21:51)
[2020-11-27] MEDS: DILTIAZEM HCL 90MG TABLET PO SCH ×4 (05:46→21:47)
[2020-11-27] MEDS: INSULIN LISPRO 100 UNITS/ML SUBCUT SCH ×4 (05:47→21:51)
[2020-11-27] MEDS: LOPERAMIDE HCL 2MG CAPSULE PO PRN (08:11)
[2020-11-27] MEDS: RISPERIDONE 0.25MG TABLET PO SCH (08:11)
[2020-11-27] MEDS: PANTOPRAZOLE SODIUM 40 MG/VIAL IV SCH ×2 (08:11→21:48)
[2020-11-27] MEDS: FOLIC ACID/VITAMIN B COMP W-C TABLET PO SCH ×2 (08:11→08:42)
[2020-11-27] MEDS: ACETAMINOPHEN 325MG TABLET PO PRN ×2 (08:11→13:09)
[2020-11-27] MEDS: ASCORBIC ACID 500 MG TABLET PO SCH ×2 (08:11→08:42)
[2020-11-27] MEDS: GUAIFENESIN 600MG ER TABLET PO SCH ×3 (08:11→21:47)
[2020-11-27] MEDS: HYDRALAZINE HCL 25MG TABLET PO SCH ×2 (08:12→21:47)
[2020-11-27] MEDS: ENOXAPARIN 120MG/0.8ML SYR SUBCUT SCH (08:13)
[2020-11-27] MEDS: DEXAMETHASONE 10 MG/ML VIAL IV SCH (08:13)
[2020-11-27] MEDS: NYSTATIN POWDER 15GM TOP SCH ×2 (08:42→18:04)
[2020-11-27] MEDS: INSULIN GLARGINE UD 100 UNITS/ML SYR SUBCUT SCH ×2 (11:37→21:50)
[2020-11-27 14:37] LABS: PLATELET ESTIMATE NORMAL
[2020-11-27] MEDS: MEROPENEM 1,000 MG in SODIUM CHLORIDE 0.9% 100 ML IV SCH (20:07)
[2020-11-27] MEDS: DRONABINOL 2.5MG CAPSULE PO SCH (21:47)
[2020-11-28] VITALS (38 sets, daily range): BP systolic 81–167; BP diastolic 51–106
[2020-11-28 05:36] LABS: HEMATOCRIT. 36.4 % (36.0-48.0); HEMOGLOBIN. 12.1 g/dL (12.0-16.0); MEAN CORPUSCULAR HEMOGLOBIN 28.8 pg (28.0-32.0); MEAN CORPUSCULAR VOLUME 86.7 fL (81.0-99.0); MEAN PLATELET VOLUME 11.9 fl (7.4-10.4); PLATELET 154 x1000/uL (130-400); RED CELL DISTRIBUTION WIDTH 16.7 % (11.6-14.6)
[2020-11-28] MEDS: DILTIAZEM HCL 90MG TABLET PO SCH ×3 (06:05→22:39)
[2020-11-28] MEDS: INSULIN LISPRO 100 UNITS/ML SUBCUT SCH ×4 (06:06→20:09)
[2020-11-28] MEDS: BLOOD SUGAR DIAGNOSTIC STRIP TEST SCH ×4 (06:06→20:15)
[2020-11-28] MEDS: GUAIFENESIN 600MG ER TABLET PO SCH ×2 (08:42→20:07)
[2020-11-28] MEDS: DEXAMETHASONE 10 MG/ML VIAL IV SCH (08:42)
[2020-11-28] MEDS: FOLIC ACID/VITAMIN B COMP W-C TABLET PO SCH (08:42)
[2020-11-28] MEDS: PANTOPRAZOLE SODIUM 40 MG/VIAL IV SCH ×2 (08:42→20:07)
[2020-11-28] MEDS: RISPERIDONE 0.25MG TABLET PO SCH (08:42)
[2020-11-28] MEDS: ASCORBIC ACID 500 MG TABLET PO SCH (08:42)
[2020-11-28] MEDS: NYSTATIN POWDER 15GM TOP SCH ×2 (08:43→17:48)
[2020-11-28] MEDS: ENOXAPARIN 120MG/0.8ML SYR SUBCUT SCH (08:43)
[2020-11-28] MEDS: HYDRALAZINE HCL 25MG TABLET PO SCH ×2 (08:43→21:02)
[2020-11-28] MEDS ORDERED: CLONIDINE 0.1MG TABLET PO PRN (09:15)
[2020-11-28 09:36] LABS: BG BASE EXCESS -4.5 mmol/L (-2.0-2.0); BG CARBOXYHEMOGLOBIN 0.3 % (0.5-1.5); BG DEOXYHEMOGLOBIN 10.9 % (0.0-5.0); BG FRACTION INSPIRED OXYGEN 100; BG HCO3 ACT 17.9 mmol/L (22.0-26.0); BG METHEMOGLOBIN 0.2 % (0.0-1.5); BG OXYHEMOGLOBIN 88.6 % (94.0-97.0); BG PCO2 26.2 mmHg (35.0-45.0); BG PH 7.452 (7.350-7.450); BG SAMPLE SITE RIGHT RADIAL; BG TOTAL HEMOGLOBIN 13.1 g/dL (12.0-18.0); BG VENT MODE MASK - BIPAP
[2020-11-28] MEDS: INSULIN GLARGINE UD 100 UNITS/ML SYR SUBCUT SCH ×2 (11:22→22:38)
[2020-11-28] MEDS ORDERED: VANCOMYCIN 1 G PREMIX 200 ML IV SCH (14:00)
[2020-11-28 15:11] LABS: PLATELET ESTIMATE NORMAL
[2020-11-28] MEDS: DILTIAZEM HCL 5MG/ML 5ML VIAL IV PRN (17:49)
[2020-11-28] MEDS ORDERED: SODIUM CHLORIDE 0.9% 500 ML IV ONE (18:30)
[2020-11-28] MEDS: MEROPENEM 1,000 MG in SODIUM CHLORIDE 0.9% 100 ML IV SCH (19:22)
[2020-11-28] MEDS: DRONABINOL 2.5MG CAPSULE PO SCH (20:07)
[2020-11-29] VITALS (69 sets, daily range): BP systolic 59–168; BP diastolic 36–113
[2020-11-29] MEDS: DILTIAZEM HCL 5MG/ML 5ML VIAL IV PRN ×3 (00:35→15:03)
[2020-11-29] MEDS: DILTIAZEM HCL 90MG TABLET PO SCH ×3 (05:28→22:00)
[2020-11-29] MEDS: BLOOD SUGAR DIAGNOSTIC STRIP TEST SCH ×4 (06:06→21:03)
[2020-11-29] MEDS: INSULIN LISPRO 100 UNITS/ML SUBCUT SCH ×4 (06:06→21:17)
[2020-11-29] MEDS: FOLIC ACID/VITAMIN B COMP W-C TABLET PO SCH (08:04)
[2020-11-29] MEDS: FERROUS SULFATE 325MG TABLET PO SCH (08:04)
[2020-11-29] MEDS: DEXAMETHASONE 10 MG/ML VIAL IV SCH (08:04)
[2020-11-29] MEDS: GUAIFENESIN 600MG ER TABLET PO SCH (08:04)
[2020-11-29] MEDS: RISPERIDONE 0.25MG TABLET PO SCH (08:04)
[2020-11-29] MEDS: PANTOPRAZOLE SODIUM 40 MG/VIAL IV SCH ×2 (08:04→21:16)
[2020-11-29] MEDS: HYDRALAZINE HCL 25MG TABLET PO SCH (08:05)
[2020-11-29] MEDS: ASCORBIC ACID 500 MG TABLET PO SCH (08:05)
[2020-11-29] MEDS: ENOXAPARIN 120MG/0.8ML SYR SUBCUT SCH (08:07)
[2020-11-29] MEDS: NYSTATIN POWDER 15GM TOP SCH ×2 (08:08→16:57)
[2020-11-29] MEDS ORDERED: DEXT 10%/0.9% NACL 1,000 ML IV SCH (08:30)
[2020-11-29 10:44] LABS: HEMATOCRIT. 35.8 % (36.0-48.0); MEAN CORPUSCULAR HEMOGLOBIN 29.1 pg (28.0-32.0); MEAN CORPUSCULAR VOLUME 86.4 fL (81.0-99.0); MEAN PLATELET VOLUME 12.7 fl (7.4-10.4); PLATELET 149 x1000/uL (130-400); RED BLOOD CELL COUNT 4.14 mill/uL (4.2-5.4); RED CELL DISTRIBUTION WIDTH 16.8 % (11.6-14.6)
[2020-11-29] MEDS: SODIUM CHLORIDE 23.4% 154 MEQ in DEXT 10% WATER 1,000 ML IV SCH (11:48)
[2020-11-29] MEDS: INSULIN GLARGINE UD 100 UNITS/ML SYR SUBCUT SCH ×2 (11:49→21:18)
[2020-11-29 12:20] LABS: PLATELET ESTIMATE NORMAL
[2020-11-29] MEDS: DRONABINOL 2.5MG CAPSULE PO SCH (21:16)
[2020-11-30] VITALS (86 sets, daily range): BP systolic 61–157; BP diastolic 28–88
[2020-11-30] MEDS: DILTIAZEM HCL 90MG TABLET PO SCH ×5 (05:39→22:00)
[2020-11-30] MEDS: BLOOD SUGAR DIAGNOSTIC STRIP TEST SCH ×4 (05:40→20:38)
[2020-11-30] MEDS: SODIUM CHLORIDE 23.4% 154 MEQ in DEXT 10% WATER 1,000 ML IV SCH ×2 (05:45→09:44)
[2020-11-30 06:20] LABS: HEMATOCRIT. 36.3 % (36.0-48.0); HEMOGLOBIN. 11.6 g/dL (12.0-16.0); MEAN CORPUSCULAR HEMOGLOBIN 27.6 pg (28.0-32.0); MEAN CORPUSCULAR VOLUME 86.4 fL (81.0-99.0); MEAN PLATELET VOLUME 12.6 fl (7.4-10.4); PLATELET 125 x1000/uL (130-400); RED CELL DISTRIBUTION WIDTH 16.7 % (11.6-14.6)
[2020-11-30] MEDS: INSULIN LISPRO 100 UNITS/ML SUBCUT SCH ×4 (06:27→21:23)
[2020-11-30] MEDS ORDERED: DIGOXIN 500MCG/2ML AMP IV NR (08:45)
[2020-11-30] MEDS: FOLIC ACID/VITAMIN B COMP W-C TABLET PO SCH (09:45)
[2020-11-30] MEDS: ASCORBIC ACID 500 MG TABLET PO SCH (09:46)
[2020-11-30] MEDS: RISPERIDONE 0.25MG TABLET PO SCH (09:46)
[2020-11-30] MEDS: DILTIAZEM HCL 5MG/ML 5ML VIAL IV PRN ×3 (09:47→16:06)
[2020-11-30] MEDS: DEXAMETHASONE 10 MG/ML VIAL IV SCH (09:47)
[2020-11-30] MEDS: ENOXAPARIN 120MG/0.8ML SYR SUBCUT SCH (10:03)
[2020-11-30] MEDS: NYSTATIN POWDER 15GM TOP SCH ×2 (10:03→16:06)
[2020-11-30] MEDS: GUAIFENESIN-DM 200MG-20MG/10ML UDC PO PRN (10:03)
[2020-11-30] MEDS: INSULIN GLARGINE UD 100 UNITS/ML SYR SUBCUT SCH ×2 (10:24→21:23)
[2020-11-30 10:47] LABS: PLATELET ESTIMATE NORMAL
[2020-11-30] MEDS: PANTOPRAZOLE SODIUM 40 MG/VIAL IV SCH ×2 (12:15→21:00)
[2020-11-30] MEDS ORDERED: HEPARIN SODIUM 1,000 UNIT/1ML VIAL IV NR ×3 (13:00)
[2020-11-30] MEDS: PHENYLEPHRINE 100 MG in DEXT 5% WATER 240 ML IV PRN (15:24)
[2020-11-30] MEDS: DRONABINOL 2.5MG CAPSULE PO SCH (21:22)
[2020-12-01] VITALS (86 sets, daily range): BP systolic 68–150; BP diastolic 39–102
[2020-12-01 05:41] LABS: BASOPHILS % 0.2 % (0.0-2.0); HEMATOCRIT. 35.3 % (36.0-48.0); HEMOGLOBIN. 11.7 g/dL (12.0-16.0); LYMPHOCYTES % 8.4 % (20.0-50.0); MEAN CORPUSCULAR HEMOGLOBIN 28.6 pg (28.0-32.0); MEAN CORPUSCULAR VOLUME 86.4 fL (81.0-99.0); MEAN PLATELET VOLUME 12.7 fl (7.4-10.4); MONOCYTES % 3.9 % (2.0-8.0); NEUTROPHILS % 87.5 % (40.0-76.0); PLATELET 121 x1000/uL (130-400); RED BLOOD CELL COUNT 4.09 mill/uL (4.2-5.4); RED CELL DISTRIBUTION WIDTH 16.2 % (11.6-14.6)
[2020-12-01] MEDS: DILTIAZEM HCL 90MG TABLET PO SCH ×3 (05:55→21:20)
[2020-12-01] MEDS: BLOOD SUGAR DIAGNOSTIC STRIP TEST SCH ×4 (05:55→21:12)
[2020-12-01] MEDS: INSULIN LISPRO 100 UNITS/ML SUBCUT SCH ×4 (06:24→21:22)
[2020-12-01] MEDS: ASCORBIC ACID 500 MG TABLET PO SCH (08:32)
[2020-12-01] MEDS: RISPERIDONE 0.25MG TABLET PO SCH (08:32)
[2020-12-01] MEDS: NYSTATIN POWDER 15GM TOP SCH ×2 (08:32→17:10)
[2020-12-01] MEDS: DEXAMETHASONE 10 MG/ML VIAL IV SCH (08:32)
[2020-12-01] MEDS: ENOXAPARIN 120MG/0.8ML SYR SUBCUT SCH (08:32)
[2020-12-01] MEDS: PANTOPRAZOLE SODIUM 40 MG/VIAL IV SCH ×2 (08:32→21:20)
[2020-12-01] MEDS: FOLIC ACID/VITAMIN B COMP W-C TABLET PO SCH (08:32)
[2020-12-01] MEDS: INSULIN GLARGINE UD 100 UNITS/ML SYR SUBCUT SCH ×2 (09:12→21:21)
[2020-12-01] MEDS: GUAIFENESIN-DM 200MG-20MG/10ML UDC PO PRN (15:00)
[2020-12-01] MEDS: DRONABINOL 2.5MG CAPSULE PO SCH (21:20)
[2020-12-02] VITALS (58 sets, daily range): BP systolic 74–158; BP diastolic 36–120
[2020-12-02] MEDS: DILTIAZEM HCL 90MG TABLET PO SCH ×3 (06:00→22:00)
[2020-12-02 06:14] LABS: BASOPHILS % 0.4 % (0.0-2.0); EOSINOPHILS % 0.1 % (0.0-5.0); HEMATOCRIT. 36.2 % (36.0-48.0); HEMOGLOBIN. 11.8 g/dL (12.0-16.0); LYMPHOCYTES % 11.9 % (20.0-50.0); MEAN CORPUSCULAR HEMOGLOBIN 28.3 pg (28.0-32.0); MEAN CORPUSCULAR VOLUME 86.9 fL (81.0-99.0); MEAN PLATELET VOLUME 12.9 fl (7.4-10.4); MONOCYTES % 4.7 % (2.0-8.0); NEUTROPHILS % 82.9 % (40.0-76.0); PLATELET 123 x1000/uL (130-400); RED BLOOD CELL COUNT 4.17 mill/uL (4.2-5.4); RED CELL DISTRIBUTION WIDTH 16.5 % (11.6-14.6)
[2020-12-02] MEDS: BLOOD SUGAR DIAGNOSTIC STRIP TEST SCH ×4 (06:31→20:42)
[2020-12-02] MEDS: INSULIN LISPRO 100 UNITS/ML SUBCUT SCH ×4 (06:31→22:09)
[2020-12-02] MEDS ORDERED: ETOMIDATE 2MG/ML 10ML VIAL IV ONE (08:39)
[2020-12-02] MEDS ORDERED: SODIUM CHLORIDE 0.9% 10ML VIAL ONE (08:39)
[2020-12-02] MEDS ORDERED: VECURONIUM BROMIDE 10 MG/VIAL IV ONE (08:39)
[2020-12-02] MEDS ORDERED: DEXT 10%/0.45% NACL 1,000 ML IV SCH (09:30)
[2020-12-02] MEDS: NYSTATIN POWDER 15GM TOP SCH ×2 (10:34→16:44)
[2020-12-02] MEDS: INSULIN GLARGINE UD 100 UNITS/ML SYR SUBCUT SCH ×2 (10:35→22:09)
[2020-12-02] MEDS: DILTIAZEM HCL 5MG/ML 5ML VIAL IV PRN ×2 (10:36→13:18)
[2020-12-02] MEDS: ENOXAPARIN 120MG/0.8ML SYR SUBCUT SCH (10:36)
[2020-12-02] MEDS: PANTOPRAZOLE SODIUM 40 MG/VIAL IV SCH ×2 (10:36→22:10)
[2020-12-02] MEDS: FOLIC ACID/VITAMIN B COMP W-C TABLET PO SCH (10:37)
[2020-12-02] MEDS: ASCORBIC ACID 500 MG TABLET PO SCH (10:37)
[2020-12-02] MEDS: DEXAMETHASONE 10 MG/ML VIAL IV SCH (10:37)
[2020-12-02] MEDS: RISPERIDONE 0.25MG TABLET PO SCH (10:37)
[2020-12-02] MEDS ORDERED: SODIUM CHLORIDE 23.4% 77 MEQ in DEXT 10% WATER 1,000 ML IV SCH (11:00)
[2020-12-02] MEDS ORDERED: LORAZEPAM 2MG/ML CPJ IV PRN (11:30)
[2020-12-02] MEDS ORDERED: MIDAZOLAM 100MG/100ML PMX 100 ML IV PRN (15:15)
[2020-12-02] MEDS: MIDAZOLAM HCL 100 MG in SODIUM CHLORIDE 0.9% 80 ML IV PRN (16:43)
[2020-12-02] MEDS: FENTANYL CITRATE/PF 2,500 MCG in SODIUM CHLORIDE 0.9% 200 ML IV PRN (16:44)
[2020-12-02 17:16] LABS: BG BASE EXCESS -5.4 mmol/L (-2.0-2.0); BG CARBOXYHEMOGLOBIN 0.4 % (0.5-1.5); BG DEOXYHEMOGLOBIN 3.3 % (0.0-5.0); BG HCO3 ACT 19.8 mmol/L (22.0-26.0); BG METHEMOGLOBIN 0.4 % (0.0-1.5); BG OXYGEN SATURATION 96.7 % (92.0-98.5); BG OXYHEMOGLOBIN 95.9 % (94.0-97.0); BG PCO2 37.6 mmHg (35.0-45.0); BG PO2 98.9 mmHg (75.0-100.0); BG SAMPLE SITE RIGHT RADIAL; BG TOTAL HEMOGLOBIN 12.9 g/dL (12.0-18.0); BG VENT MODE VENT - AC
[2020-12-02] MEDS: DRONABINOL 2.5MG CAPSULE PO SCH (20:42)
[2020-12-03] VITALS (101 sets, daily range): BP systolic 88–150; BP diastolic 33–80
[2020-12-03 05:00] LABS: HEMOGLOBIN. 10.7 g/dL (12.0-16.0); MEAN CORPUSCULAR HEMOGLOBIN 28.3 pg (28.0-32.0); MEAN CORPUSCULAR VOLUME 86.9 fL (81.0-99.0); MEAN PLATELET VOLUME 12.3 fl (7.4-10.4); PLATELET 95 x1000/uL (130-400); RED CELL DISTRIBUTION WIDTH 16.7 % (11.6-14.6)
[2020-12-03] MEDS: FENTANYL CITRATE/PF 2,500 MCG in SODIUM CHLORIDE 0.9% 200 ML IV PRN ×2 (05:31→17:24)
[2020-12-03] MEDS: DILTIAZEM HCL 90MG TABLET PO SCH ×3 (06:00→21:57)
[2020-12-03] MEDS: BLOOD SUGAR DIAGNOSTIC STRIP TEST SCH ×3 (06:16→16:30)
[2020-12-03] MEDS: INSULIN LISPRO 100 UNITS/ML SUBCUT SCH ×3 (06:16→17:52)
[2020-12-03] MEDS: ASCORBIC ACID 500 MG TABLET PO SCH (09:09)
[2020-12-03] MEDS: RISPERIDONE 0.25MG TABLET PO SCH (09:09)
[2020-12-03] MEDS: FOLIC ACID/VITAMIN B COMP W-C TABLET PO SCH (09:09)
[2020-12-03] MEDS: ENOXAPARIN 120MG/0.8ML SYR SUBCUT SCH (09:09)
[2020-12-03] MEDS: PANTOPRAZOLE SODIUM 40 MG/VIAL IV SCH ×2 (09:10→21:57)
[2020-12-03] MEDS: DEXAMETHASONE 10 MG/ML VIAL IV SCH (09:10)
[2020-12-03] MEDS: NYSTATIN POWDER 15GM TOP SCH ×2 (09:10→17:52)
[2020-12-03] MEDS: INSULIN GLARGINE UD 100 UNITS/ML SYR SUBCUT SCH (09:10)
[2020-12-03 09:24] LABS: BG BASE EXCESS -5.1 mmol/L (-2.0-2.0); BG CARBOXYHEMOGLOBIN 0.3 % (0.5-1.5); BG DEOXYHEMOGLOBIN 4.6 % (0.0-5.0); BG FRACTION INSPIRED OXYGEN 100; BG HCO3 ACT 21.1 mmol/L (22.0-26.0); BG METHEMOGLOBIN 0.4 % (0.0-1.5); BG OXYGEN SATURATION 95.4 % (92.0-98.5); BG OXYHEMOGLOBIN 94.7 % (94.0-97.0); BG PCO2 43.7 mmHg (35.0-45.0); BG PH 7.302 (7.350-7.450); BG PO2 90.7 mmHg (75.0-100.0); BG SAMPLE SITE RIGHT RADIAL; BG TOTAL HEMOGLOBIN 11.4 g/dL (12.0-18.0); BG VENT MODE VENT - AC
[2020-12-03 10:26] LABS: NUCLEATED RED BLOOD CELLS 1 /100 WBC
[2020-12-03 10:27] LABS: PLATELET ESTIMATE DECREASED
[2020-12-03] MEDS: MIDAZOLAM HCL 100 MG in SODIUM CHLORIDE 0.9% 80 ML IV PRN (17:24)
[2020-12-03] MEDS: PHENYLEPHRINE 100 MG in DEXT 5% WATER 240 ML IV PRN (17:25)
[2020-12-03] MEDS: DRONABINOL 2.5MG CAPSULE PO SCH (21:56)
[2020-12-04] VITALS (95 sets, daily range): BP systolic 67–149; BP diastolic 33–88
[2020-12-04] MEDS: BLOOD SUGAR DIAGNOSTIC STRIP TEST SCH ×5 (00:27→23:32)
[2020-12-04] MEDS: INSULIN LISPRO 100 UNITS/ML SUBCUT SCH ×5 (00:31→23:32)
[2020-12-04] MEDS: MIDAZOLAM HCL 100 MG in SODIUM CHLORIDE 0.9% 80 ML IV PRN ×2 (03:29→13:15)
[2020-12-04] MEDS: DILTIAZEM HCL 90MG TABLET PO SCH ×3 (05:08→21:30)
[2020-12-04 06:08] LABS: HEMATOCRIT. 35.8 % (36.0-48.0); HEMOGLOBIN. 11.5 g/dL (12.0-16.0); MEAN CORPUSCULAR HEMOGLOBIN 28.2 pg (28.0-32.0); MEAN CORPUSCULAR VOLUME 87.6 fL (81.0-99.0); MEAN PLATELET VOLUME 12.6 fl (7.4-10.4); PLATELET 119 x1000/uL (130-400); RED BLOOD CELL COUNT 4.09 mill/uL (4.2-5.4); RED CELL DISTRIBUTION WIDTH 16.3 % (11.6-14.6)
[2020-12-04 08:00] LABS: BG BASE EXCESS -5.8 mmol/L (-2.0-2.0); BG CARBOXYHEMOGLOBIN 0.1 % (0.5-1.5); BG DEOXYHEMOGLOBIN 3.7 % (0.0-5.0); BG HCO3 ACT 20.1 mmol/L (22.0-26.0); BG METHEMOGLOBIN 0.3 % (0.0-1.5); BG OXYGEN SATURATION 96.3 % (92.0-98.5); BG OXYHEMOGLOBIN 95.9 % (94.0-97.0); BG PCO2 41.1 mmHg (35.0-45.0); BG PH 7.307 (7.350-7.450); BG PO2 91.1 mmHg (75.0-100.0); BG SAMPLE SITE RIGHT RADIAL; BG TOTAL HEMOGLOBIN 12.2 g/dL (12.0-18.0)
[2020-12-04 08:13] LABS: BG VENT MODE VENT - AC
[2020-12-04] MEDS: FOLIC ACID/VITAMIN B COMP W-C TABLET PO SCH (08:18)
[2020-12-04] MEDS: ENOXAPARIN 120MG/0.8ML SYR SUBCUT SCH (08:18)
[2020-12-04] MEDS: FENTANYL CITRATE/PF 2,500 MCG in SODIUM CHLORIDE 0.9% 200 ML IV PRN ×3 (08:19→22:11)
[2020-12-04] MEDS: DEXAMETHASONE 10 MG/ML VIAL IV SCH (08:19)
[2020-12-04] MEDS: ASCORBIC ACID 500 MG TABLET PO SCH (08:19)
[2020-12-04] MEDS: RISPERIDONE 0.25MG TABLET PO SCH (08:19)
[2020-12-04] MEDS: PANTOPRAZOLE SODIUM 40 MG/VIAL IV SCH ×2 (08:19→21:30)
[2020-12-04 09:17] LABS: NUCLEATED RED BLOOD CELLS 2 /100 WBC
[2020-12-04 09:18] LABS: PLATELET ESTIMATE SLIGHTLY DECREASED
[2020-12-04] MEDS: NYSTATIN POWDER 15GM TOP SCH ×2 (09:52→17:00)
[2020-12-04] MEDS: METOCLOPRAMIDE HCL 10MG/2ML VIAL IV SCH ×3 (11:51→23:32)
[2020-12-04] MEDS: MIDODRINE HCL 5MG TABLET PO SCH ×2 (13:05→17:41)
[2020-12-04] MEDS: PHENYLEPHRINE 100 MG in DEXT 5% WATER 240 ML IV PRN (14:36)
[2020-12-04] MEDS: MEROPENEM 1,000 MG in SODIUM CHLORIDE 0.9% 100 ML IV SCH (17:41)
[2020-12-04] MEDS: DRONABINOL 2.5MG CAPSULE PO SCH (21:30)
[2020-12-05] VITALS (97 sets, daily range): BP systolic 85–130; BP diastolic 37–69
[2020-12-05] MEDS: MIDAZOLAM HCL 100 MG in SODIUM CHLORIDE 0.9% 80 ML IV PRN ×3 (01:32→23:39)
[2020-12-05] MEDS: PHENYLEPHRINE 100 MG in DEXT 5% WATER 240 ML IV PRN ×2 (01:54→19:45)
[2020-12-05 05:39] LABS: HEMATOCRIT. 33.2 % (36.0-48.0); MEAN CORPUSCULAR HEMOGLOBIN 28.6 pg (28.0-32.0); MEAN CORPUSCULAR VOLUME 86.9 fL (81.0-99.0); MEAN PLATELET VOLUME 12.5 fl (7.4-10.4); PLATELET 113 x1000/uL (130-400); RED BLOOD CELL COUNT 3.83 mill/uL (4.2-5.4); RED CELL DISTRIBUTION WIDTH 16.6 % (11.6-14.6)
[2020-12-05] MEDS: BLOOD SUGAR DIAGNOSTIC STRIP TEST SCH ×4 (05:41→23:32)
[2020-12-05] MEDS: INSULIN LISPRO 100 UNITS/ML SUBCUT SCH ×4 (05:41→23:40)
[2020-12-05] MEDS: DILTIAZEM HCL 90MG TABLET PO SCH ×3 (05:41→21:14)
[2020-12-05] MEDS: METOCLOPRAMIDE HCL 10MG/2ML VIAL IV SCH ×5 (05:41→23:38)
[2020-12-05 06:05] LABS: PHOSPHORUS 12.1 mg/dL (2.5-4.9)
[2020-12-05 08:28] LABS: NUCLEATED RED BLOOD CELLS 2 /100 WBC; PLATELET ESTIMATE DECREASED
[2020-12-05 08:32] LABS: BG BASE EXCESS -7.7 mmol/L (-2.0-2.0); BG CARBOXYHEMOGLOBIN 0.3 % (0.5-1.5); BG DEOXYHEMOGLOBIN 8.8 % (0.0-5.0); BG FRACTION INSPIRED OXYGEN 100; BG HCO3 ACT 18.9 mmol/L (22.0-26.0); BG METHEMOGLOBIN 0.5 % (0.0-1.5); BG OXYGEN SATURATION 91.1 % (92.0-98.5); BG OXYHEMOGLOBIN 90.4 % (94.0-97.0); BG PCO2 42.3 mmHg (35.0-45.0); BG PH 7.267 (7.350-7.450); BG SAMPLE SITE RIGHT RADIAL; BG TOTAL HEMOGLOBIN 11.3 g/dL (12.0-18.0); BG TOTAL RESPIRATORY RATE 28 b/min; BG VENT MODE VENT - AC
[2020-12-05] MEDS: FOLIC ACID/VITAMIN B COMP W-C TABLET PO SCH (08:38)
[2020-12-05] MEDS: PANTOPRAZOLE SODIUM 40 MG/VIAL IV SCH ×2 (08:38→21:13)
[2020-12-05] MEDS: DEXAMETHASONE 10 MG/ML VIAL IV SCH (08:38)
[2020-12-05] MEDS: MIDODRINE HCL 5MG TABLET PO SCH ×3 (08:39→17:30)
[2020-12-05] MEDS: ASCORBIC ACID 500 MG TABLET PO SCH (08:39)
[2020-12-05] MEDS: ENOXAPARIN 120MG/0.8ML SYR SUBCUT SCH (08:39)
[2020-12-05] MEDS: RISPERIDONE 0.25MG TABLET PO SCH (08:39)
[2020-12-05] MEDS: NYSTATIN POWDER 15GM TOP SCH ×2 (08:44→17:32)
[2020-12-05] MEDS ORDERED: SEVELAMER CARBONATE 800 MG TABLET PO SCH (09:00)
[2020-12-05] MEDS: FENTANYL CITRATE/PF 2,500 MCG in SODIUM CHLORIDE 0.9% 200 ML IV PRN ×2 (10:33→21:34)
[2020-12-05] MEDS ORDERED: BRIM5DRO6 EACHEYE (15:43)
[2020-12-05] MEDS ORDERED: METO25TA6 MT (15:44)
[2020-12-05] MEDS ORDERED: LOSA25TA26 MT (15:44)
[2020-12-05] MEDS ORDERED: LATA2.5D14 EACHEYE (15:45)
[2020-12-05] MEDS ORDERED: DORZ10DR8 EACHEYE (15:46)
[2020-12-05] MEDS ORDERED: GABA-532 MT (15:49)
[2020-12-05] MEDS ORDERED: OLME40TA18 MT (15:49)
[2020-12-05] MEDS: MEROPENEM 1,000 MG in SODIUM CHLORIDE 0.9% 100 ML IV SCH (17:30)
[2020-12-05] MEDS: DRONABINOL 2.5MG CAPSULE PO SCH (21:14)
[2020-12-06] VITALS (88 sets, daily range): BP systolic 81–151; BP diastolic 36–75
[2020-12-06] MEDS: METOCLOPRAMIDE HCL 10MG/2ML VIAL IV SCH ×4 (05:41→23:49)
[2020-12-06] MEDS: DILTIAZEM HCL 90MG TABLET PO SCH ×3 (05:43→22:00)
[2020-12-06] MEDS: INSULIN LISPRO 100 UNITS/ML SUBCUT SCH ×4 (05:44→23:49)
[2020-12-06] MEDS: BLOOD SUGAR DIAGNOSTIC STRIP TEST SCH ×4 (05:44→23:50)
[2020-12-06 05:45] LABS: HEMATOCRIT. 33.8 % (36.0-48.0); HEMOGLOBIN. 11.2 g/dL (12.0-16.0); MEAN CORPUSCULAR VOLUME 87.3 fL (81.0-99.0); MEAN PLATELET VOLUME 11.8 fl (7.4-10.4); PLATELET 119 x1000/uL (130-400); RED BLOOD CELL COUNT 3.87 mill/uL (4.2-5.4); RED CELL DISTRIBUTION WIDTH 16.7 % (11.6-14.6)
[2020-12-06] MEDS: PHENYLEPHRINE 100 MG in DEXT 5% WATER 240 ML IV PRN (05:45)
[2020-12-06] MEDS: FENTANYL CITRATE/PF 2,500 MCG in SODIUM CHLORIDE 0.9% 200 ML IV PRN ×2 (05:47→16:46)
[2020-12-06 06:14] LABS: PHOSPHORUS 8.6 mg/dL (2.5-4.9)
[2020-12-06 08:21] LABS: BG CARBOXYHEMOGLOBIN 0.3 % (0.5-1.5); BG FRACTION INSPIRED OXYGEN 100; BG HCO3 ACT 21.4 mmol/L (22.0-26.0); BG METHEMOGLOBIN 0.3 % (0.0-1.5); BG OXYHEMOGLOBIN 93.4 % (94.0-97.0); BG PCO2 50.3 mmHg (35.0-45.0); BG PH 7.247 (7.350-7.450); BG PO2 79.4 mmHg (75.0-100.0); BG SAMPLE SITE LEFT RADIAL; BG TOTAL HEMOGLOBIN 12.2 g/dL (12.0-18.0); BG VENT MODE PRVC
[2020-12-06] MEDS: RISPERIDONE 0.25MG TABLET PO SCH (08:47)
[2020-12-06] MEDS: FOLIC ACID/VITAMIN B COMP W-C TABLET PO SCH (08:47)
[2020-12-06] MEDS: ASCORBIC ACID 500 MG TABLET PO SCH (08:47)
[2020-12-06] MEDS: PANTOPRAZOLE SODIUM 40 MG/VIAL IV SCH ×2 (08:47→20:47)
[2020-12-06] MEDS: MIDODRINE HCL 5MG TABLET PO SCH ×3 (08:47→17:24)
[2020-12-06] MEDS: DEXAMETHASONE 10 MG/ML VIAL IV SCH (08:48)
[2020-12-06] MEDS: ENOXAPARIN 120MG/0.8ML SYR SUBCUT SCH (08:48)
[2020-12-06] MEDS: NYSTATIN POWDER 15GM TOP SCH ×2 (09:32→17:24)
[2020-12-06] MEDS: MIDAZOLAM HCL 100 MG in SODIUM CHLORIDE 0.9% 80 ML IV PRN (09:34)
[2020-12-06] MEDS ORDERED: METOCLOPRAMIDE HCL 10MG/2ML VIAL IV SCH (12:00)
[2020-12-06] MEDS ORDERED: BISACODYL 10MG SUPP PR PRN (13:00)
[2020-12-06 16:07] LABS: PLATELET ESTIMATE DECREASED
[2020-12-06] MEDS: MEROPENEM 1,000 MG in SODIUM CHLORIDE 0.9% 100 ML IV SCH (17:25)
[2020-12-06] MEDS: DRONABINOL 2.5MG CAPSULE PO SCH (21:22)
[2020-12-07] VITALS (88 sets, daily range): BP systolic 83–165; BP diastolic 40–83
[2020-12-07] MEDS: DILTIAZEM HCL 90MG TABLET PO SCH ×3 (05:31→22:14)
[2020-12-07] MEDS: BLOOD SUGAR DIAGNOSTIC STRIP TEST SCH ×4 (05:31→23:09)
[2020-12-07] MEDS: METOCLOPRAMIDE HCL 10MG/2ML VIAL IV SCH ×4 (05:54→23:13)
[2020-12-07] MEDS: INSULIN LISPRO 100 UNITS/ML SUBCUT SCH ×4 (05:56→23:14)
[2020-12-07 06:17] LABS: HEMATOCRIT. 32.5 % (36.0-48.0); HEMOGLOBIN. 10.7 g/dL (12.0-16.0); MEAN CORPUSCULAR HEMOGLOBIN 28.8 pg (28.0-32.0); MEAN PLATELET VOLUME 11.7 fl (7.4-10.4); PLATELET 106 x1000/uL (130-400); RED BLOOD CELL COUNT 3.73 mill/uL (4.2-5.4); RED CELL DISTRIBUTION WIDTH 17.3 % (11.6-14.6)
[2020-12-07 08:14] LABS: BG BASE EXCESS -6.7 mmol/L (-2.0-2.0); BG CARBOXYHEMOGLOBIN 0.2 % (0.5-1.5); BG DEOXYHEMOGLOBIN 3.7 % (0.0-5.0); BG HCO3 ACT 18.3 mmol/L (22.0-26.0); BG METHEMOGLOBIN 0.3 % (0.0-1.5); BG OXYGEN SATURATION 96.3 % (92.0-98.5); BG OXYHEMOGLOBIN 95.8 % (94.0-97.0); BG PCO2 34.6 mmHg (35.0-45.0); BG PH 7.341 (7.350-7.450); BG PO2 90.1 mmHg (75.0-100.0); BG SAMPLE SITE RIGHT RADIAL; BG TOTAL HEMOGLOBIN 11.1 g/dL (12.0-18.0); BG VENT MODE VENT- PRVC
[2020-12-07] MEDS: DEXAMETHASONE 10 MG/ML VIAL IV SCH (09:33)
[2020-12-07] MEDS: ASCORBIC ACID 500 MG TABLET PO SCH (09:34)
[2020-12-07] MEDS: FOLIC ACID/VITAMIN B COMP W-C TABLET PO SCH (09:34)
[2020-12-07] MEDS: RISPERIDONE 0.25MG TABLET PO SCH (09:34)
[2020-12-07] MEDS: PANTOPRAZOLE SODIUM 40 MG/VIAL IV SCH ×2 (09:34→22:14)
[2020-12-07] MEDS: MIDODRINE HCL 5MG TABLET PO SCH ×3 (09:34→16:32)
[2020-12-07] MEDS: ENOXAPARIN 120MG/0.8ML SYR SUBCUT SCH (09:35)
[2020-12-07] MEDS: NYSTATIN POWDER 15GM TOP SCH ×2 (09:35→16:33)
[2020-12-07] MEDS: INSULIN GLARGINE UD 100 UNITS/ML SYR SUBCUT SCH ×2 (12:14→23:14)
[2020-12-07] MEDS: PHENYLEPHRINE 100 MG in DEXT 5% WATER 240 ML IV PRN (14:51)
[2020-12-07] MEDS: MEROPENEM 1,000 MG in SODIUM CHLORIDE 0.9% 100 ML IV SCH (17:59)
[2020-12-07] MEDS: DRONABINOL 2.5MG CAPSULE PO SCH (22:13)
[2020-12-08] VITALS (104 sets, daily range): BP systolic 68–172; BP diastolic 42–101
[2020-12-08 05:47] LABS: HEMATOCRIT. 35.1 % (36.0-48.0); HEMOGLOBIN. 11.5 g/dL (12.0-16.0); MEAN CORPUSCULAR HEMOGLOBIN 28.3 pg (28.0-32.0); MEAN CORPUSCULAR VOLUME 86.5 fL (81.0-99.0); MEAN PLATELET VOLUME 11.2 fl (7.4-10.4); PLATELET 97 x1000/uL (130-400); RED BLOOD CELL COUNT 4.06 mill/uL (4.2-5.4); RED CELL DISTRIBUTION WIDTH 16.9 % (11.6-14.6)
[2020-12-08 05:58] LABS: PHOSPHORUS 7.7 mg/dL (2.5-4.9)
[2020-12-08] MEDS: DILTIAZEM HCL 90MG TABLET PO SCH (05:58)
[2020-12-08] MEDS: METOCLOPRAMIDE HCL 10MG/2ML VIAL IV SCH ×4 (06:02→23:44)
[2020-12-08] MEDS: BLOOD SUGAR DIAGNOSTIC STRIP TEST SCH ×4 (06:03→23:45)
[2020-12-08] MEDS: INSULIN LISPRO 100 UNITS/ML SUBCUT SCH ×4 (06:03→23:45)
[2020-12-08] MEDS: FENTANYL CITRATE/PF 2,500 MCG in SODIUM CHLORIDE 0.9% 200 ML IV PRN ×2 (06:45→17:25)
[2020-12-08] MEDS: PHENYLEPHRINE 100 MG in DEXT 5% WATER 240 ML IV PRN (07:27)
[2020-12-08 09:38] LABS: BG BASE EXCESS -2.9 mmol/L (-2.0-2.0); BG CARBOXYHEMOGLOBIN 0.3 % (0.5-1.5); BG DEOXYHEMOGLOBIN 6.6 % (0.0-5.0); BG FRACTION INSPIRED OXYGEN 100; BG METHEMOGLOBIN 0.3 % (0.0-1.5); BG OXYGEN SATURATION 93.4 % (92.0-98.5); BG OXYHEMOGLOBIN 92.8 % (94.0-97.0); BG PCO2 33.4 mmHg (35.0-45.0); BG PH 7.416 (7.350-7.450); BG PO2 71.9 mmHg (75.0-100.0); BG SAMPLE SITE RIGHT RADIAL; BG TOTAL HEMOGLOBIN 11.8 g/dL (12.0-18.0); BG VENT MODE VENT - PRVC
[2020-12-08] MEDS: ENOXAPARIN 120MG/0.8ML SYR SUBCUT SCH (09:47)
[2020-12-08] MEDS: DEXAMETHASONE 10 MG/ML VIAL IV SCH (09:48)
[2020-12-08] MEDS: MIDODRINE HCL 5MG TABLET PO SCH ×3 (09:48→17:00)
[2020-12-08] MEDS: PANTOPRAZOLE SODIUM 40 MG/VIAL IV SCH ×2 (09:48→21:03)
[2020-12-08] MEDS: RISPERIDONE 0.25MG TABLET PO SCH (09:49)
[2020-12-08] MEDS: FOLIC ACID/VITAMIN B COMP W-C TABLET PO SCH (09:49)
[2020-12-08] MEDS: NYSTATIN POWDER 15GM TOP SCH ×2 (09:49→17:00)
[2020-12-08] MEDS: ASCORBIC ACID 500 MG TABLET PO SCH (09:49)
[2020-12-08] MEDS: INSULIN GLARGINE UD 100 UNITS/ML SYR SUBCUT SCH ×2 (10:34→23:45)
[2020-12-08] MEDS: DILTIAZEM HCL 60MG TABLET PO SCH ×2 (14:00→21:03)
[2020-12-08 15:49] LABS: NUCLEATED RED BLOOD CELLS 2 /100 WBC
[2020-12-08 15:50] LABS: PLATELET ESTIMATE SLIGHTLY DECREASED
[2020-12-08 17:02] LABS: PLATELET ESTIMATE DECREASED
[2020-12-08] MEDS: MEROPENEM 1,000 MG in SODIUM CHLORIDE 0.9% 100 ML IV SCH (18:40)
[2020-12-08] MEDS: DRONABINOL 2.5MG CAPSULE PO SCH (21:05)
[2020-12-09] VITALS (105 sets, daily range): BP systolic 69–160; BP diastolic 41–89
[2020-12-09] MEDS: METOCLOPRAMIDE HCL 10MG/2ML VIAL IV SCH ×4 (05:18→23:15)
[2020-12-09] MEDS: DILTIAZEM HCL 60MG TABLET PO SCH ×3 (05:19→22:55)
[2020-12-09] MEDS: BLOOD SUGAR DIAGNOSTIC STRIP TEST SCH ×4 (05:20→23:15)
[2020-12-09] MEDS: INSULIN LISPRO 100 UNITS/ML SUBCUT SCH ×4 (05:20→23:16)
[2020-12-09] MEDS: PHENYLEPHRINE 100 MG in DEXT 5% WATER 240 ML IV PRN ×4 (06:12→22:55)
[2020-12-09 06:20] LABS: HEMATOCRIT. 34.1 % (36.0-48.0); HEMOGLOBIN. 10.9 g/dL (12.0-16.0); MEAN CORPUSCULAR HEMOGLOBIN 28.3 pg (28.0-32.0); MEAN CORPUSCULAR VOLUME 88.8 fL (81.0-99.0); MEAN PLATELET VOLUME 11.3 fl (7.4-10.4); PLATELET 114 x1000/uL (130-400); RED BLOOD CELL COUNT 3.84 mill/uL (4.2-5.4); RED CELL DISTRIBUTION WIDTH 17.4 % (11.6-14.6)
[2020-12-09] MEDS: DILTIAZEM HCL 5MG/ML 5ML VIAL IV PRN ×3 (08:17→17:28)
[2020-12-09] MEDS: FENTANYL CITRATE/PF 2,500 MCG in SODIUM CHLORIDE 0.9% 200 ML IV PRN ×2 (08:30→17:52)
[2020-12-09 08:54] LABS: BG BASE EXCESS 0.4 mmol/L (-2.0-2.0); BG CARBOXYHEMOGLOBIN 0.7 % (0.5-1.5); BG FRACTION INSPIRED OXYGEN 100; BG HCO3 ACT 26.1 mmol/L (22.0-26.0); BG METHEMOGLOBIN 0.3 % (0.0-1.5); BG OXYGEN SATURATION 86.9 % (92.0-98.5); BG PCO2 45.9 mmHg (35.0-45.0); BG PH 7.372 (7.350-7.450); BG SAMPLE SITE RIGHT RADIAL; BG TOTAL HEMOGLOBIN 12.7 g/dL (12.0-18.0); BG VENT MODE VENT- PRVC
[2020-12-09] MEDS: NYSTATIN POWDER 15GM TOP SCH ×2 (09:00→17:00)
[2020-12-09] MEDS: MIDODRINE HCL 5MG TABLET PO SCH ×3 (09:34→18:06)
[2020-12-09] MEDS: RISPERIDONE 0.25MG TABLET PO SCH (09:34)
[2020-12-09] MEDS: PANTOPRAZOLE SODIUM 40 MG/VIAL IV SCH ×2 (09:34→20:12)
[2020-12-09] MEDS: ASCORBIC ACID 500 MG TABLET PO SCH (09:34)
[2020-12-09] MEDS: DEXAMETHASONE 10 MG/ML VIAL IV SCH (09:34)
[2020-12-09] MEDS: FOLIC ACID/VITAMIN B COMP W-C TABLET PO SCH (09:34)
[2020-12-09] MEDS: ENOXAPARIN 120MG/0.8ML SYR SUBCUT SCH (09:35)
[2020-12-09] MEDS: INSULIN GLARGINE UD 100 UNITS/ML SYR SUBCUT SCH ×2 (11:10→23:17)
[2020-12-09] MEDS: AMIODARONE HCL 200 MG TABLET PO SCH ×2 (12:05→20:12)
[2020-12-09 14:33] LABS: NUCLEATED RED BLOOD CELLS 4 /100 WBC; PLATELET ESTIMATE SLIGHTLY DECREASED
[2020-12-09] MEDS: MEROPENEM 1,000 MG in SODIUM CHLORIDE 0.9% 100 ML IV SCH (18:05)
[2020-12-09] MEDS ORDERED: NOREPINEPHRINE 32 MG in DEXT 5% WATER 218 ML IV PRN (19:45)
[2020-12-09] MEDS: DRONABINOL 2.5MG CAPSULE PO SCH (20:12)
[2020-12-09 20:40] LABS: BG CARBOXYHEMOGLOBIN 0.8 % (0.5-1.5); BG DEOXYHEMOGLOBIN 19.8 % (0.0-5.0); BG FRACTION INSPIRED OXYGEN 100; BG HCO3 ACT 22.4 mmol/L (22.0-26.0); BG METHEMOGLOBIN 0.4 % (0.0-1.5); BG PCO2 46.2 mmHg (35.0-45.0); BG PH 7.304 (7.350-7.450); BG PO2 50.3 mmHg (75.0-100.0); BG SAMPLE SITE RIGHT RADIAL; BG TOTAL HEMOGLOBIN 11.9 g/dL (12.0-18.0); BG VENT MODE VENT - PRVC
[2020-12-09] MEDS: MIDAZOLAM HCL 100 MG in SODIUM CHLORIDE 0.9% 80 ML IV PRN (23:24)
[2020-12-10] VITALS (92 sets, daily range): BP systolic 50–155; BP diastolic 30–89
[2020-12-10] MEDS: FENTANYL CITRATE/PF 2,500 MCG in SODIUM CHLORIDE 0.9% 200 ML IV PRN ×4 (00:10→23:21)
[2020-12-10] MEDS: VASOPRESSIN 20 UNIT in SODIUM CHLORIDE 0.9% 99 ML IV PRN ×4 (00:58→23:48)
[2020-12-10] MEDS: PHENYLEPHRINE 100 MG in DEXT 5% WATER 240 ML IV PRN ×4 (03:49→22:42)
[2020-12-10 05:10] LABS: HEMATOCRIT. 37.2 % (36.0-48.0); HEMOGLOBIN. 11.8 g/dL (12.0-16.0); MEAN CORPUSCULAR HEMOGLOBIN 28.4 pg (28.0-32.0); MEAN CORPUSCULAR VOLUME 89.1 fL (81.0-99.0); MEAN PLATELET VOLUME 11.2 fl (7.4-10.4); PLATELET 124 x1000/uL (130-400); RED BLOOD CELL COUNT 4.17 mill/uL (4.2-5.4); RED CELL DISTRIBUTION WIDTH 17.5 % (11.6-14.6)
[2020-12-10 05:32] LABS: PHOSPHORUS 8.6 mg/dL (2.5-4.9)
[2020-12-10] MEDS: DILTIAZEM HCL 60MG TABLET PO SCH ×3 (05:39→22:00)
[2020-12-10] MEDS: METOCLOPRAMIDE HCL 10MG/2ML VIAL IV SCH ×4 (05:39→23:43)
[2020-12-10] MEDS: BLOOD SUGAR DIAGNOSTIC STRIP TEST SCH ×4 (05:41→23:44)
[2020-12-10] MEDS: INSULIN LISPRO 100 UNITS/ML SUBCUT SCH ×3 (05:41→17:44)
[2020-12-10 08:32] LABS: BG BASE EXCESS -6.3 mmol/L (-2.0-2.0); BG CARBOXYHEMOGLOBIN 0.3 % (0.5-1.5); BG DEOXYHEMOGLOBIN 9.5 % (0.0-5.0); BG HCO3 ACT 19.5 mmol/L (22.0-26.0); BG OXYGEN SATURATION 90.5 % (92.0-98.5); BG OXYHEMOGLOBIN 90.2 % (94.0-97.0); BG PCO2 39.9 mmHg (35.0-45.0); BG PH 7.308 (7.350-7.450); BG PO2 65.2 mmHg (75.0-100.0); BG SAMPLE SITE LEFT RADIAL; BG TOTAL HEMOGLOBIN 12.1 g/dL (12.0-18.0); BG VENT MODE VENT- PRVC
[2020-12-10] MEDS: MIDODRINE HCL 5MG TABLET PO SCH ×3 (09:31→17:43)
[2020-12-10] MEDS: FOLIC ACID/VITAMIN B COMP W-C TABLET PO SCH (09:32)
[2020-12-10] MEDS: AMIODARONE HCL 200 MG TABLET PO SCH ×2 (09:32→20:50)
[2020-12-10] MEDS: PANTOPRAZOLE SODIUM 40 MG/VIAL IV SCH (09:32)
[2020-12-10] MEDS: SEVELAMER CARBONATE 800 MG TABLET PO SCH ×3 (09:32→17:43)
[2020-12-10] MEDS: ASCORBIC ACID 500 MG TABLET PO SCH (09:32)
[2020-12-10] MEDS: DEXAMETHASONE 10 MG/ML VIAL IV SCH (09:32)
[2020-12-10] MEDS: RISPERIDONE 0.25MG TABLET PO SCH (09:32)
[2020-12-10] MEDS: ENOXAPARIN 120MG/0.8ML SYR SUBCUT SCH (09:33)
[2020-12-10] MEDS: INSULIN GLARGINE UD 100 UNITS/ML SYR SUBCUT SCH (09:33)
[2020-12-10] MEDS: MIDAZOLAM HCL 100 MG in SODIUM CHLORIDE 0.9% 80 ML IV PRN (10:42)
[2020-12-10] MEDS: NYSTATIN POWDER 15GM TOP SCH ×2 (12:48→17:44)
[2020-12-10 13:47] LABS: NUCLEATED RED BLOOD CELLS 5 /100 WBC; PLATELET ESTIMATE SLIGHTLY DECREASED
[2020-12-10] MEDS ORDERED: INSULIN GLARGINE UD 100 UNITS/ML SYR SUBCUT NR (14:00)
[2020-12-10] MEDS: DRONABINOL 2.5MG CAPSULE PO SCH (20:51)
[2020-12-10] MEDS ORDERED: INSULIN GLARGINE UD 100 UNITS/ML SYR SUBCUT SCH (23:00)
[2020-12-11] VITALS (96 sets, daily range): BP systolic 74–172; BP diastolic 29–94
[2020-12-11] MEDS: INSULIN LISPRO 100 UNITS/ML SUBCUT SCH ×4 (01:00→17:26)
[2020-12-11] MEDS: MIDAZOLAM HCL 100 MG in SODIUM CHLORIDE 0.9% 80 ML IV PRN ×2 (01:45→17:30)
[2020-12-11] MEDS: PHENYLEPHRINE 100 MG in DEXT 5% WATER 240 ML IV PRN ×4 (05:29→23:12)
[2020-12-11] MEDS: METOCLOPRAMIDE HCL 10MG/2ML VIAL IV SCH ×3 (05:40→17:25)
[2020-12-11 05:54] LABS: HEMATOCRIT. 36.1 % (36.0-48.0); HEMOGLOBIN. 11.4 g/dL (12.0-16.0); MEAN CORPUSCULAR HEMOGLOBIN 28.7 pg (28.0-32.0); MEAN CORPUSCULAR VOLUME 91.1 fL (81.0-99.0); MEAN PLATELET VOLUME 11.5 fl (7.4-10.4); PLATELET 113 x1000/uL (130-400); RED BLOOD CELL COUNT 3.97 mill/uL (4.2-5.4); RED CELL DISTRIBUTION WIDTH 18.6 % (11.6-14.6)
[2020-12-11] MEDS: DILTIAZEM HCL 60MG TABLET PO SCH ×3 (06:00→22:20)
[2020-12-11] MEDS: BLOOD SUGAR DIAGNOSTIC STRIP TEST SCH ×3 (06:30→17:25)
[2020-12-11] MEDS: SEVELAMER CARBONATE 800 MG TABLET PO SCH ×3 (06:31→17:25)
[2020-12-11] MEDS: FENTANYL CITRATE/PF 2,500 MCG in SODIUM CHLORIDE 0.9% 200 ML IV PRN ×3 (07:06→22:19)
[2020-12-11] MEDS: ASCORBIC ACID 500 MG TABLET PO SCH (08:11)
[2020-12-11] MEDS: MIDODRINE HCL 5MG TABLET PO SCH ×3 (08:11→17:00)
[2020-12-11] MEDS: AMIODARONE HCL 200 MG TABLET PO SCH ×2 (08:11→21:25)
[2020-12-11] MEDS: RISPERIDONE 0.25MG TABLET PO SCH (08:11)
[2020-12-11] MEDS: DEXAMETHASONE 10 MG/ML VIAL IV SCH (08:11)
[2020-12-11] MEDS: FOLIC ACID/VITAMIN B COMP W-C TABLET PO SCH (08:11)
[2020-12-11] MEDS: ENOXAPARIN 120MG/0.8ML SYR SUBCUT SCH (08:12)
[2020-12-11] MEDS: NYSTATIN POWDER 15GM TOP SCH ×2 (08:13→17:25)
[2020-12-11] MEDS: VASOPRESSIN 20 UNIT in SODIUM CHLORIDE 0.9% 99 ML IV PRN ×2 (08:47→15:59)
[2020-12-11] MEDS ORDERED: SODIUM POLYSTYRENE SULFONATE 15 G/60 ML BOT PO SCH (09:00)
[2020-12-11 09:36] LABS: BG BASE EXCESS -9.2 mmol/L (-2.0-2.0); BG CARBOXYHEMOGLOBIN 0.8 % (0.5-1.5); BG DEOXYHEMOGLOBIN 14.2 % (0.0-5.0); BG FRACTION INSPIRED OXYGEN 100; BG HCO3 ACT 19.4 mmol/L (22.0-26.0); BG METHEMOGLOBIN 0.2 % (0.0-1.5); BG OXYGEN SATURATION 85.7 % (92.0-98.5); BG OXYHEMOGLOBIN 84.8 % (94.0-97.0); BG PCO2 52.9 mmHg (35.0-45.0); BG PH 7.183 (7.350-7.450); BG PO2 59.2 mmHg (75.0-100.0); BG SAMPLE SITE RIGHT RADIAL; BG TOTAL HEMOGLOBIN 14.2 g/dL (12.0-18.0); BG VENT MODE PRVC
[2020-12-11] MEDS: PANTOPRAZOLE SODIUM 40 MG/VIAL IV SCH (10:15)
[2020-12-11] MEDS: INSULIN GLARGINE UD 100 UNITS/ML SYR SUBCUT SCH ×2 (10:16→22:21)
[2020-12-11] MEDS ORDERED: SODIUM BICARBONATE 8.4% 1 MEQ/ML 50ML SYR IV NR (10:45)
[2020-12-11 11:04] LABS: PLATELET ESTIMATE SLIGHTLY DECREASED
[2020-12-11 11:34] LABS: NUCLEATED RED BLOOD CELLS 4 /100 WBC
[2020-12-11] MEDS ORDERED: NOREPINEPHRINE 32 MG in SODIUM CHLORIDE 0.9% 218 ML IV PRN ×2 (12:43→13:00)
[2020-12-11] MEDS ORDERED: BISACODYL 10MG SUPP PR NR (17:30)
[2020-12-11] MEDS: DRONABINOL 2.5MG CAPSULE PO SCH (21:24)
[2020-12-12] VITALS (96 sets, daily range): BP systolic 91–155; BP diastolic 37–72
[2020-12-12] MEDS: BLOOD SUGAR DIAGNOSTIC STRIP TEST SCH ×5 (00:24→23:35)
[2020-12-12] MEDS: INSULIN LISPRO 100 UNITS/ML SUBCUT SCH ×5 (00:28→23:35)
[2020-12-12] MEDS: METOCLOPRAMIDE HCL 10MG/2ML VIAL IV SCH ×4 (00:28→17:04)
[2020-12-12 05:08] LABS: HEMATOCRIT. 28.8 % (36.0-48.0); HEMOGLOBIN. 9.6 g/dL (12.0-16.0); MEAN CORPUSCULAR HEMOGLOBIN 29.4 pg (28.0-32.0); MEAN CORPUSCULAR VOLUME 88.7 fL (81.0-99.0); MEAN PLATELET VOLUME 10.6 fl (7.4-10.4); PLATELET 79 x1000/uL (130-400); RED BLOOD CELL COUNT 3.25 mill/uL (4.2-5.4); RED CELL DISTRIBUTION WIDTH 17.9 % (11.6-14.6)
[2020-12-12] MEDS: DILTIAZEM HCL 60MG TABLET PO SCH ×2 (05:45→13:02)
[2020-12-12] MEDS: FENTANYL CITRATE/PF 2,500 MCG in SODIUM CHLORIDE 0.9% 200 ML IV PRN ×3 (06:48→23:33)
[2020-12-12] MEDS: PHENYLEPHRINE 100 MG in DEXT 5% WATER 240 ML IV PRN (08:15)
[2020-12-12] MEDS: ASCORBIC ACID 500 MG TABLET PO SCH (08:42)
[2020-12-12] MEDS: SEVELAMER CARBONATE 800 MG TABLET PO SCH ×3 (08:42→17:04)
[2020-12-12] MEDS: PANTOPRAZOLE SODIUM 40 MG/VIAL IV SCH (08:42)
[2020-12-12] MEDS: DEXAMETHASONE 10 MG/ML VIAL IV SCH (08:42)
[2020-12-12] MEDS: RISPERIDONE 0.25MG TABLET GT SCH (08:42)
[2020-12-12] MEDS: AMIODARONE HCL 200 MG TABLET PO SCH ×2 (08:42→20:47)
[2020-12-12] MEDS: ENOXAPARIN 120MG/0.8ML SYR SUBCUT SCH (08:43)
[2020-12-12] MEDS: MIDODRINE HCL 5MG TABLET PO SCH ×3 (08:43→17:04)
[2020-12-12] MEDS: FOLIC ACID/VITAMIN B COMP W-C TABLET PO SCH (08:43)
[2020-12-12] MEDS: NYSTATIN POWDER 15GM TOP SCH ×2 (08:44→17:04)
[2020-12-12 10:07] LABS: BG CARBOXYHEMOGLOBIN 0.4 % (0.5-1.5); BG DEOXYHEMOGLOBIN 7.4 % (0.0-5.0); BG FRACTION INSPIRED OXYGEN 100; BG HCO3 ACT 25.1 mmol/L (22.0-26.0); BG METHEMOGLOBIN 0.4 % (0.0-1.5); BG OXYGEN SATURATION 92.5 % (92.0-98.5); BG OXYHEMOGLOBIN 91.8 % (94.0-97.0); BG PCO2 47.9 mmHg (35.0-45.0); BG PH 7.337 (7.350-7.450); BG PO2 70.5 mmHg (75.0-100.0); BG SAMPLE SITE RIGHT RADIAL; BG TOTAL HEMOGLOBIN 10.1 g/dL (12.0-18.0); BG VENT MODE VENT - PRVC
[2020-12-12] MEDS: INSULIN GLARGINE UD 100 UNITS/ML SYR SUBCUT SCH ×2 (11:25→21:28)
[2020-12-12 11:45] LABS: NUCLEATED RED BLOOD CELLS 2 /100 WBC; PLATELET ESTIMATE DECREASED
[2020-12-12] MEDS: DILTIAZEM HCL 30MG TABLET PO SCH (21:03)
[2020-12-13] VITALS (97 sets, daily range): BP systolic 82–157; BP diastolic 36–135
[2020-12-13] MEDS: METOCLOPRAMIDE HCL 10MG/2ML VIAL IV SCH ×4 (00:59→18:01)
[2020-12-13] MEDS: INSULIN LISPRO 100 UNITS/ML SUBCUT SCH ×4 (05:11→23:48)
[2020-12-13] MEDS: BLOOD SUGAR DIAGNOSTIC STRIP TEST SCH ×4 (05:11→23:48)
[2020-12-13] MEDS: FENTANYL CITRATE/PF 2,500 MCG in SODIUM CHLORIDE 0.9% 200 ML IV PRN ×3 (05:49→23:10)
[2020-12-13] MEDS: DILTIAZEM HCL 30MG TABLET PO SCH (05:54)
[2020-12-13] MEDS: SEVELAMER CARBONATE 800 MG TABLET PO SCH ×3 (07:00→18:03)
[2020-12-13] MEDS: PANTOPRAZOLE SODIUM 40 MG/VIAL IV SCH (08:16)
[2020-12-13] MEDS: FOLIC ACID/VITAMIN B COMP W-C TABLET PO SCH (08:16)
[2020-12-13] MEDS: DEXAMETHASONE 10 MG/ML VIAL IV SCH (08:16)
[2020-12-13] MEDS: MIDODRINE HCL 5MG TABLET PO SCH ×3 (08:17→18:03)
[2020-12-13] MEDS: RISPERIDONE 0.25MG TABLET GT SCH (08:18)
[2020-12-13] MEDS: AMIODARONE HCL 200 MG TABLET PO SCH ×2 (08:18→21:01)
[2020-12-13 08:56] LABS: BG BASE EXCESS -3.4 mmol/L (-2.0-2.0); BG CARBOXYHEMOGLOBIN 0.3 % (0.5-1.5); BG DEOXYHEMOGLOBIN 7.1 % (0.0-5.0); BG FRACTION INSPIRED OXYGEN 100; BG HCO3 ACT 21.7 mmol/L (22.0-26.0); BG METHEMOGLOBIN 0.3 % (0.0-1.5); BG OXYGEN SATURATION 92.9 % (92.0-98.5); BG OXYHEMOGLOBIN 92.3 % (94.0-97.0); BG PCO2 38.9 mmHg (35.0-45.0); BG PH 7.364 (7.350-7.450); BG PO2 69.7 mmHg (75.0-100.0); BG SAMPLE SITE RIGHT RADIAL; BG TOTAL HEMOGLOBIN 10.3 g/dL (12.0-18.0); BG VENT MODE VENT - PRVC
[2020-12-13] MEDS: INSULIN GLARGINE UD 100 UNITS/ML SYR SUBCUT SCH ×2 (10:22→21:41)
[2020-12-13 10:34] LABS: HEMATOCRIT. 27.7 % (36.0-48.0); HEMOGLOBIN. 9.4 g/dL (12.0-16.0); MEAN CORPUSCULAR HEMOGLOBIN 29.4 pg (28.0-32.0); MEAN CORPUSCULAR VOLUME 86.4 fL (81.0-99.0); MEAN PLATELET VOLUME 11.2 fl (7.4-10.4); PLATELET 60 x1000/uL (130-400); RED CELL DISTRIBUTION WIDTH 17.9 % (11.6-14.6)
[2020-12-13] MEDS: DILTIAZEM HCL 60MG TABLET PO SCH ×3 (13:39→22:31)
[2020-12-13 15:43] LABS: PLATELET ESTIMATE DECREASED
[2020-12-13] MEDS: DILTIAZEM HCL 5MG/ML 5ML VIAL IV PRN (22:50)
[2020-12-14] VITALS (61 sets, daily range): BP systolic 72–153; BP diastolic 46–90
[2020-12-14] MEDS: METOCLOPRAMIDE HCL 10MG/2ML VIAL IV SCH ×4 (01:00→18:32)
[2020-12-14] MEDS: DILTIAZEM HCL 5MG/ML 5ML VIAL IV PRN (01:00)
[2020-12-14] MEDS: DILTIAZEM HCL 60MG TABLET PO SCH ×3 (05:41→21:20)
[2020-12-14] MEDS: SEVELAMER CARBONATE 800 MG TABLET PO SCH ×3 (05:42→17:42)
[2020-12-14] MEDS: INSULIN LISPRO 100 UNITS/ML SUBCUT SCH ×3 (06:00→18:00)
[2020-12-14] MEDS: FENTANYL CITRATE/PF 2,500 MCG in SODIUM CHLORIDE 0.9% 200 ML IV PRN ×2 (06:16→09:36)
[2020-12-14] MEDS: BLOOD SUGAR DIAGNOSTIC STRIP TEST SCH ×3 (06:18→18:32)
[2020-12-14] MEDS: PHENYLEPHRINE 100 MG in DEXT 5% WATER 240 ML IV PRN (06:55)
[2020-12-14 07:02] LABS: HEMATOCRIT. 29.5 % (36.0-48.0); HEMOGLOBIN. 9.7 g/dL (12.0-16.0); MEAN CORPUSCULAR HEMOGLOBIN 28.7 pg (28.0-32.0); MEAN CORPUSCULAR VOLUME 87.3 fL (81.0-99.0); RED BLOOD CELL COUNT 3.37 mill/uL (4.2-5.4); RED CELL DISTRIBUTION WIDTH 17.6 % (11.6-14.6)
[2020-12-14] MEDS: FOLIC ACID/VITAMIN B COMP W-C TABLET PO SCH (09:22)
[2020-12-14] MEDS: RISPERIDONE 0.25MG TABLET GT SCH (09:22)
[2020-12-14] MEDS: AMIODARONE HCL 200 MG TABLET PO SCH ×2 (09:22→21:20)
[2020-12-14] MEDS: MIDODRINE HCL 5MG TABLET PO SCH ×3 (09:23→17:42)
[2020-12-14] MEDS: DEXAMETHASONE 10 MG/ML VIAL IV SCH (09:23)
[2020-12-14] MEDS: PANTOPRAZOLE SODIUM 40 MG/VIAL IV SCH (09:23)
[2020-12-14] MEDS: INSULIN GLARGINE UD 100 UNITS/ML SYR SUBCUT SCH ×2 (10:00→21:43)
[2020-12-14 11:20] LABS: MEAN PLATELET VOLUME 11.7 fl (7.4-10.4); PLATELET ESTIMATE DECREASED
[2020-12-14 11:21] LABS: PLATELET 79 x1000/uL (130-400)
[2020-12-15] VITALS (72 sets, daily range): BP systolic 82–148; BP diastolic 44–117
[2020-12-15] MEDS: FENTANYL CITRATE/PF 2,500 MCG in SODIUM CHLORIDE 0.9% 200 ML IV PRN ×3 (03:13→20:40)
[2020-12-15] MEDS: METOCLOPRAMIDE HCL 10MG/2ML VIAL IV SCH ×5 (05:18→23:30)
[2020-12-15] MEDS: DILTIAZEM HCL 60MG TABLET PO SCH ×3 (05:19→21:48)
[2020-12-15] MEDS: SEVELAMER CARBONATE 800 MG TABLET PO SCH ×3 (05:19→18:23)
[2020-12-15 05:46] LABS: HEMATOCRIT. 24.4 % (36.0-48.0); HEMOGLOBIN. 8.2 g/dL (12.0-16.0); MEAN CORPUSCULAR HEMOGLOBIN 29.1 pg (28.0-32.0); MEAN CORPUSCULAR VOLUME 87.3 fL (81.0-99.0); MEAN PLATELET VOLUME 11.2 fl (7.4-10.4); PLATELET 56 x1000/uL (130-400); RED CELL DISTRIBUTION WIDTH 18.3 % (11.6-14.6)
[2020-12-15] MEDS: INSULIN LISPRO 100 UNITS/ML SUBCUT SCH ×5 (06:00→23:40)
[2020-12-15] MEDS: BLOOD SUGAR DIAGNOSTIC STRIP TEST SCH ×5 (06:56→23:36)
[2020-12-15 08:46] LABS: BG BASE EXCESS -1.7 mmol/L (-2.0-2.0); BG CARBOXYHEMOGLOBIN 0.5 % (0.5-1.5); BG DEOXYHEMOGLOBIN 9.8 % (0.0-5.0); BG FRACTION INSPIRED OXYGEN 100; BG HCO3 ACT 22.8 mmol/L (22.0-26.0); BG METHEMOGLOBIN 0.2 % (0.0-1.5); BG OXYGEN SATURATION 90.1 % (92.0-98.5); BG OXYHEMOGLOBIN 89.5 % (94.0-97.0); BG PCO2 37.4 mmHg (35.0-45.0); BG PH 7.403 (7.350-7.450); BG SAMPLE SITE RIGHT RADIAL; BG TOTAL HEMOGLOBIN 10.3 g/dL (12.0-18.0); BG VENT MODE VENT - PRVC
[2020-12-15] MEDS: PANTOPRAZOLE SODIUM 40 MG/VIAL IV SCH (09:00)
[2020-12-15] MEDS: RISPERIDONE 0.25MG TABLET GT SCH (09:00)
[2020-12-15] MEDS: FOLIC ACID/VITAMIN B COMP W-C TABLET PO SCH (09:00)
[2020-12-15] MEDS: AMIODARONE HCL 200 MG TABLET PO SCH ×2 (09:00→21:08)
[2020-12-15] MEDS: MIDODRINE HCL 5MG TABLET PO SCH ×3 (09:00→18:23)
[2020-12-15] MEDS: INSULIN GLARGINE UD 100 UNITS/ML SYR SUBCUT SCH ×2 (10:00→21:47)
[2020-12-15 18:13] LABS: NUCLEATED RED BLOOD CELLS 1 /100 WBC; PLATELET ESTIMATE DECREASED
[2020-12-16] VITALS (87 sets, daily range): BP systolic 61–198; BP diastolic 21–109
[2020-12-16] MEDS: BLOOD SUGAR DIAGNOSTIC STRIP TEST SCH ×3 (05:59→17:25)
[2020-12-16] MEDS: INSULIN LISPRO 100 UNITS/ML SUBCUT SCH ×3 (06:00→14:10)
[2020-12-16] MEDS: METOCLOPRAMIDE HCL 10MG/2ML VIAL IV SCH ×3 (06:00→17:08)
[2020-12-16 06:01] LABS: HEMATOCRIT. 26.3 % (36.0-48.0); HEMOGLOBIN. 8.7 g/dL (12.0-16.0); MEAN CORPUSCULAR HEMOGLOBIN 28.9 pg (28.0-32.0); MEAN PLATELET VOLUME 11.7 fl (7.4-10.4); RED BLOOD CELL COUNT 2.99 mill/uL (4.2-5.4)
[2020-12-16] MEDS: DILTIAZEM HCL 60MG TABLET PO SCH ×3 (06:01→22:00)
[2020-12-16] MEDS: FENTANYL CITRATE/PF 2,500 MCG in SODIUM CHLORIDE 0.9% 200 ML IV PRN (06:07)
[2020-12-16] MEDS: SEVELAMER CARBONATE 800 MG TABLET PO SCH ×3 (06:35→17:08)
[2020-12-16 06:43] LABS: PLATELET 49 x1000/uL (130-400)
[2020-12-16 08:12] LABS: BG BASE EXCESS -4.9 mmol/L (-2.0-2.0); BG CARBOXYHEMOGLOBIN 0.5 % (0.5-1.5); BG DEOXYHEMOGLOBIN 23.3 % (0.0-5.0); BG HCO3 ACT 20.8 mmol/L (22.0-26.0); BG METHEMOGLOBIN 0.3 % (0.0-1.5); BG OXYGEN SATURATION 76.5 % (92.0-98.5); BG OXYHEMOGLOBIN 75.9 % (94.0-97.0); BG PCO2 41.1 mmHg (35.0-45.0); BG PH 7.322 (7.350-7.450); BG PO2 45.3 mmHg (75.0-100.0); BG SAMPLE SITE RIGHT RADIAL; BG TOTAL HEMOGLOBIN 10.8 g/dL (12.0-18.0); BG VENT MODE VENT- PRVC
[2020-12-16 08:36] LABS: NUCLEATED RED BLOOD CELLS 1 /100 WBC
[2020-12-16 08:37] LABS: PLATELET ESTIMATE MARKEDLY DECREASED
[2020-12-16] MEDS: PANTOPRAZOLE SODIUM 40 MG/VIAL IV SCH (09:24)
[2020-12-16] MEDS: MIDODRINE HCL 5MG TABLET PO SCH ×3 (09:24→17:08)
[2020-12-16] MEDS: AMIODARONE HCL 200 MG TABLET PO SCH ×2 (09:24→21:49)
[2020-12-16] MEDS: RISPERIDONE 0.25MG TABLET GT SCH (09:24)
[2020-12-16] MEDS: FOLIC ACID/VITAMIN B COMP W-C TABLET PO SCH (09:25)
[2020-12-16] MEDS: INSULIN GLARGINE UD 100 UNITS/ML SYR SUBCUT SCH ×2 (09:31→21:49)
[2020-12-16 10:35] LABS: D-DIMER 5.62 mg/L FEU (<0.50); PROTHROMBIN TIME 10.8 sec (9.6-11.0)
[2020-12-16] MEDS: PHENYLEPHRINE 100 MG in DEXT 5% WATER 240 ML IV PRN (14:31)
[2020-12-17] VITALS (63 sets, daily range): BP systolic 63–120; BP diastolic 41–107
[2020-12-17] MEDS: METOCLOPRAMIDE HCL 10MG/2ML VIAL IV SCH ×3 (00:05→11:15)
[2020-12-17] MEDS: INSULIN LISPRO 100 UNITS/ML SUBCUT SCH ×3 (00:06→11:12)
[2020-12-17 05:43] LABS: HEMATOCRIT. 31.7 % (36.0-48.0); HEMOGLOBIN. 10.1 g/dL (12.0-16.0); MEAN CORPUSCULAR HEMOGLOBIN 28.7 pg (28.0-32.0); MEAN CORPUSCULAR VOLUME 90.5 fL (81.0-99.0); RED BLOOD CELL COUNT 3.51 mill/uL (4.2-5.4); RED CELL DISTRIBUTION WIDTH 19.7 % (11.6-14.6)
[2020-12-17] MEDS: PHENYLEPHRINE 100 MG in DEXT 5% WATER 240 ML IV PRN ×2 (05:48→09:45)
[2020-12-17 05:50] LABS: PHOSPHORUS 7.3 mg/dL (2.5-4.9)
[2020-12-17] MEDS: DILTIAZEM HCL 60MG TABLET PO SCH ×2 (06:00→13:35)
[2020-12-17] MEDS: SEVELAMER CARBONATE 800 MG TABLET PO SCH ×2 (06:21→11:15)
[2020-12-17] MEDS: BLOOD SUGAR DIAGNOSTIC STRIP TEST SCH ×3 (06:21→11:12)
[2020-12-17] MEDS: RISPERIDONE 0.25MG TABLET GT SCH (08:29)
[2020-12-17] MEDS: MIDODRINE HCL 5MG TABLET PO SCH ×2 (08:29→13:35)
[2020-12-17] MEDS: PANTOPRAZOLE SODIUM 40 MG/VIAL IV SCH (08:29)
[2020-12-17] MEDS: AMIODARONE HCL 200 MG TABLET PO SCH (08:29)
[2020-12-17] MEDS: INSULIN GLARGINE UD 100 UNITS/ML SYR SUBCUT SCH (09:52)
[2020-12-17] MEDS ORDERED: MEROPENEM 1,000 MG in SODIUM CHLORIDE 0.9% 100 ML IV SCH (10:00)
[2020-12-17 10:33] LABS: NUCLEATED RED BLOOD CELLS 15 /100 WBC
[2020-12-17 10:36] LABS: PLATELET ESTIMATE DECREASED
[2020-12-17 10:37] LABS: MEAN PLATELET VOLUME 11.4 fl (7.4-10.4); PLATELET 82 x1000/uL (130-400)
[2020-12-17 10:45] LABS: BG BASE EXCESS -14.1 mmol/L (-2.0-2.0); BG CARBOXYHEMOGLOBIN 0.8 % (0.5-1.5); BG FRACTION INSPIRED OXYGEN 100; BG HCO3 ACT 16.4 mmol/L (22.0-26.0); BG METHEMOGLOBIN 0.5 % (0.0-1.5); BG OXYGEN SATURATION 75.7 % (92.0-98.5); BG OXYHEMOGLOBIN 74.7 % (94.0-97.0); BG PCO2 60.2 mmHg (35.0-45.0); BG PH 7.053 (7.350-7.450); BG PO2 52.5 mmHg (75.0-100.0); BG SAMPLE SITE LEFT RADIAL; BG TOTAL HEMOGLOBIN 11.6 g/dL (12.0-18.0); BG VENT MODE PRVC
[2020-12-17] MEDS ORDERED: SODIUM BICARBONATE 8.4% 1 MEQ/ML 50ML SYR IV NR (11:00)
[2020-12-17] MEDS ORDERED: ENOXAPARIN 120MG/0.8ML SYR SUBCUT SCH (21:00)
== END 2020-12-17 18:15 | DRG 870 ==
LOC: EDBD 03:06 → ER 03:06 → 7WST 05:14 → EDBEDREQ 05:16 → EDBEDREQTM 05:16 → EDBEDREQSVC 05:16 → ENRESERV 08:40 → CANRESERV 08:40 → ENRESERV 15:23 → 7WST 11-13 05:51 → MICUSO 11-23 10:13 → MICUNO 12-06 14:00
PROVIDERS: ADMIT Internal Medicine; ATTEND Internal Medicine
PROC: 02HV33Z Insertion of Infusion Device into Superior Vena Cava, Percutaneous Approach (ICD-10-PCS; principal; 2020-11-18)
PROC: 5A09357 Assistance with Respiratory Ventilation, Less than 24 Consecutive Hours, Continuous Positive Airway Pressure (ICD-10-PCS; 2020-11-18)
PROC: B548ZZA Ultrasonography of Superior Vena Cava, Guidance (ICD-10-PCS; 2020-11-18)
PROC: 5A09357 Assistance with Respiratory Ventilation, Less than 24 Consecutive Hours, Continuous Positive Airway Pressure (ICD-10-PCS; 2020-11-21)
PROC: 5A09357 Assistance with Respiratory Ventilation, Less than 24 Consecutive Hours, Continuous Positive Airway Pressure (ICD-10-PCS; 2020-11-22)
PROC: 5A09457 Assistance with Respiratory Ventilation, 24-96 Consecutive Hours, Continuous Positive Airway Pressure (ICD-10-PCS; 2020-11-25)
PROC: 5A09457 Assistance with Respiratory Ventilation, 24-96 Consecutive Hours, Continuous Positive Airway Pressure (ICD-10-PCS; 2020-11-29)
PROC: 5A1955Z Respiratory Ventilation, Greater than 96 Consecutive Hours (ICD-10-PCS; 2020-12-02)
PROC: 0BH17EZ Insertion of Endotracheal Airway into Trachea, Via Natural or Artificial Opening (ICD-10-PCS; 2020-12-02)
PROC: 5A1D70Z Performance of Urinary Filtration, Intermittent, Less than 6 Hours Per Day (ICD-10-PCS; 2020-12-03)
PROC: 5A1D70Z Performance of Urinary Filtration, Intermittent, Less than 6 Hours Per Day (ICD-10-PCS; 2020-12-05)
DX: A41.89 Other specified sepsis (principal); U07.1 COVID-19; J12.82 Pneumonia due to coronavirus disease 2019; N18.6 End stage renal disease; R65.21 Severe sepsis with septic shock; G93.41 Metabolic encephalopathy; J96.00 Acute respiratory failure, unspecified whether with hypoxia or hypercapnia; E87.2 Acidosis; K92.2 Gastrointestinal hemorrhage, unspecified; E44.1 Mild protein-calorie malnutrition; Z68.41 Body mass index [BMI] 40.0-44.9, adult; Z99.11 Dependence on respirator [ventilator] status; D61.818 Other pancytopenia; I13.2 Hypertensive heart and chronic kidney disease with heart failure and with stage 5 chronic kidney disease, or end stage renal disease; N17.9 Acute kidney failure, unspecified; Z66 Do not resuscitate; D64.9 Anemia, unspecified; E11.22 Type 2 diabetes mellitus with diabetic chronic kidney disease; E66.01 Morbid (severe) obesity due to excess calories; I48.91 Unspecified atrial fibrillation; Z51.5 Encounter for palliative care; I50.9 Heart failure, unspecified; E87.5 Hyperkalemia; R21 Rash and other nonspecific skin eruption; Z78.9 Other specified health status; Z86.73 Personal history of transient ischemic attack (TIA), and cerebral infarction without residual deficits; Z79.82 Long term (current) use of aspirin; Z79.899 Other long term (current) drug therapy; Z91.19 Patient's noncompliance with other medical treatment and regimen; Z99.2 Dependence on renal dialysis; Z87.448 Personal history of other diseases of urinary system
CPT/HCPCS: 36415; 36556; 36600; 71045; 74018; 76770; 76937; 80048; 80053; 80202; 81003; 82043; 82270; 82375; 82550; 82570; 82607; 82728; 82746; 82805; 82962; 83540; 83550; 83605; 83615; 83735; 83880; 84100; 84145; 84484; 85025; 85044; 85379; 85384; 86140; 86705; 86709; 86803; 87015; 87045; 87070; 87077; 87186; 87340; 87426; 87427; 87449; 87493; 89055; 93005; 93306; 93970; 94002; 94003; 94640; 94660; 99291; A6261; C1752; C9113; J0692; J0696; J1100; J1160; J1642; J1644; J1650; J1815; J2060; J2185; J2250; J2370; J2405; J2543; J2765; J3010; J3370; J3490; J7030; J7040; J7050; J7060; J7131; Q0167; U0003; U0005